=== PATIENT | female | born 1930 | race Caucasian/White ===

== ENCOUNTER 2018-01-07 14:53 | Inpatient (IN) | payer BC ==
[2018-01-07] VITALS (12 sets, daily range): BP systolic 79–138; BP diastolic 39–82
[~2018-01-07] VITALS: Ht 152.4 cm; Wt 43.1 kg
--- NOTE | 2018-01-07 14:53 | NUR ---
[id number] FROM [facility] FOR AMS AND SOB STARTED 30 MIN AGO. PLACED ON MONITOR. AWAITING MD ORDER
--- NOTE | 2018-01-07 15:06 | NUR ---
EKG IN PROGRESS
--- NOTE | 2018-01-07 15:06 | NUR ---
TRISTAN #20 IV ACCESS. BLOOD SAMPLE COLLECTED SENT TO LAB
[2018-01-07 15:29] LABS: BASOPHILS % (AUTO) 0.4 % (0.0-2.0); CARBON DIOXIDE 32 mmol/L (21-32); CHLORIDE 111 mmol/L (98-107); CREATININE 2.1 mg/dL (0.6-1.3); GLUCOSE 123 mg/dL (74-106); HEMATOCRIT 30 % (33-45); HEMOGLOBIN 9.6 g/dL (11.5-14.8); LYMPHOCYTES # (AUTO) 0.6 /CMM (0.8-4.8); LYMPHOCYTES % (AUTO) 5.9 % (20.0-44.0); MEAN CORPUSCULAR HEMOGLOBIN 27 PG (26.0-33.0); MEAN CORPUSCULAR HGB CONC 32 g/dl (31.0-36.0); MEAN CORPUSCULAR VOLUME 85 fL (82-100); MONOCYTES # (AUTO) 1.1 /CMM (0.1-1.30); MONOCYTES % (AUTO) 10.3 % (2.0-12.0); NEUTROPHILS # (AUTO) 8.8 /CMM (1.8-8.9); NEUTROPHILS % (AUTO) 83.4 % (43.0-81.0); PLATELET COUNT (AUTO) 218 /CMM (150-450); POTASSIUM 4.4 mmol/L (3.5-5.1); SODIUM SERUM 150 mmol/L (136-145); UREA NITROGEN, BLOOD 55 mg/dL (7-18); WHITE BLOOD COUNT (AUTO) 10.5 K/uL (4.3-11.0)
[2018-01-07 15:30] LABS: ABG BASE EXCESS -0.1 mmol/L; ABG OXYGEN SATURATION 99.4 % (92.0-98.5); ABG PCO2 42.1 mmHg (35.0-45.0); ABG PO2 330.5 mmHg (75.0-100.0); AaDO2 340.4 mmHg; COHb 1.2 % (0.5-1.5); MetHb 0.5 % (0.0-1.5); O2Hb 97.7 % (94.0-97.0); SITE, ABG Right Radial; VENT MODE, BG NRB
[2018-01-07 15:33] LABS: INR 2.64 (0.85-1.15)
--- NOTE | 2018-01-07 15:41 | NUR ---
VERBAL ORDER DR ZAMORANO DE LA CRUZ CATH INSERTION URINE SAMPLE COLLECTED SENT TO LAB
--- NOTE | 2018-01-07 15:41 | NUR ---
SUPERVISOR FITTING AT BEDSIDE
[2018-01-07 15:42] LABS: ALANINE AMINOTRANSFERASE 41 U/L (12-78); ALBUMIN 2.5 g/dL (3.4-5.0); ALKALINE PHOSPHATASE 90 U/L (46-116); ASPARTATE AMINOTRANSFERASE 49 U/L (15-37); B-TYPE NATRIURETIC PEPTIDE 18629 PG/ML (0-125); BILIRUBIN,DIRECT 5.8 mg/dL (0.0-0.2); BILIRUBIN,TOTAL 7.4 mg/dL (0.2-1.0); TOTAL PROTEIN, SERUM 6.4 g/dL (6.4-8.2)
[2018-01-07 15:44] LABS: SERUM AMMONIA 27 umol/L (11-32)
[2018-01-07 15:57] LABS: APPEARANCE,URINE Clear (CLEAR); BILIRUBIN,URINE MODERATE (NEGATIVE); BLOOD, URINE Trace-intact Ery/uL (NEGATIVE); COLOR,URINE Yellow (YELLOW); KETONES,URINE Negative (NEGATIVE); LEUKOCYTE ESTERASE ,URINE Negative (NEGATIVE); NITRITE, URINE Negative (NEGATIVE); PROTEIN,URINE 100 mg/dl (NEGATIVE); UGLUCOSE Negative (NEGATIVE)
[2018-01-07] MEDS ORDERED: IV NS 0.9% 1,000 ML IV ONE (16:00)
[2018-01-07 16:15] LABS: THYROID STIMULATING HORMONE 1.831 uIU/mL (0.358-3.74)
--- NOTE | 2018-01-07 16:26 | NUR ---
CALLED [facility] FOR DISCHARGE SUMMARY, LABS AND IMAGE REPORTS
[2018-01-07 16:34] LABS: TROPONIN I 0.184 ng/mL (0.00-0.056)
[2018-01-07 16:45] LABS: WBC,URINE 0-2 /HPF (0-3)
--- NOTE | 2018-01-07 16:45 | NUR ---
VERBAL ORDER ETOMIDATE 30 MG AND SUCC 120 MG VIA IV
[2018-01-07 16:46] LABS: BACTERIA,URINE Few /HPF (None Seen); HYALINE CASTS, URINE Moderate /LPF (None Seen); SQUAMOUS EPITHELIAL CELL,UR Moderate /HPF (None Seen); URINE AMORPHOUS URATE Many /HPF (None Seen)
--- NOTE | 2018-01-07 16:53 | NUR ---
PICC LINE NURSE CALLED, ETA W/IN 2 HRS, DR ZAMORANO AWARE
[2018-01-07 17:02] LABS: BAND % (MANUAL) 2 % (0.0-5.0); LYMPHOCYTES % (MANUAL) 6 % (16-48); MONOCYTES % (MANUAL) 8 % (0-11.0); NEUTROPHILS % (MANUAL) 84 (42-76)
--- NOTE | 2018-01-07 17:06 | NUR ---
RT NOTE INTUBATED PT WITH AN 7.5 ETT,21CM @ THE LIP, POSITIVE CO2 DETECTOR COLOR CHANGE, BILATERAL RHONCHI BREATH SOUND NOTED, WITH FOLLOWING VENT SETTINGS, AC 14, 400, +5 100%. AMBUBAG AT BED SIDE, VENT PLUGGED INTO RED OUTLET. PT IN NO APPARENT DISTRESS. WILL MONITOR CLOSELY
--- NOTE | 2018-01-07 17:16 | NUR ---
TYPEWRITERS FUNCTIONAL TESTER AT BEDSIDE
[2018-01-07] MEDS ORDERED: ALBUTEROL FS 2.5 MG/3 ML VIAL.NEB ONE (17:21)
[2018-01-07] MEDS ORDERED: MAGN400O6 PO (17:28)
[2018-01-07] MEDS ORDERED: BISA10SU8 RC (17:28)
[2018-01-07] MEDS ORDERED: LEVO88TA5 PO (17:28)
[2018-01-07] MEDS ORDERED: FOLI0.8T2 PO (17:28)
[2018-01-07] MEDS ORDERED: ALPR0.5T8 PO (17:28)
[2018-01-07] MEDS ORDERED: SPIR25TA PO (17:28)
[2018-01-07] MEDS ORDERED: APIX2.5T PO (17:28)
[2018-01-07] MEDS ORDERED: NA P133E RC (17:28)
--- NOTE | 2018-01-07 18:20 | NUR ---
PICC LINE NURSE AT BEDSIDE
[2018-01-07] MEDS ORDERED: SUCCINYLCHOLINE CHLORIDE 20 MG/ML VIAL IV ONE (18:30)
[2018-01-07] MEDS ORDERED: ALBUTEROL SULFATE 8 GM HFA.AER.AD IH ONE (18:30)
[2018-01-07] MEDS ORDERED: ETOMIDATE 2 MG/ML VIAL IV ONE (18:30)
--- NOTE | 2018-01-07 18:52 | NUR ---
GIVEN REPORT TO APARNA CHAPLAIN RESIDENT ROOM 251 DX ACUTE RESPIRATORY FAILURE METABOLIC ENCEPHALOPATHY . DR VARGAS ADMITTING
[2018-01-07] MEDS ORDERED: VANCOMYCIN 1 GM in IV D5W 250 ML IV ONE (19:00)
[2018-01-07] MEDS ORDERED: PIPERACILLIN /TAZOBACTAM 3.375 G in IV D5W 50 ML IV ONE (19:00)
[2018-01-07] MEDS ORDERED: PROPOFOL 100 ML ONE (19:08)
--- NOTE | 2018-01-07 19:10 | NUR ---
REPORT RECIEVED FROM BORIS ROE FOR TANA.
--- NOTE | 2018-01-07 19:15 | NUR ---
RT AT BEDSIDE TO ADJUSTED ET TUBE. 23CM AT THE LIP NOW.
--- NOTE | 2018-01-07 19:20 | NUR ---
PROPOFOL DRIP STOPPED DUE TO PT B/P 65/33. MADE AWARE. NEW ORDERS RECEIVED.
[2018-01-07 19:25] LABS: ABG OXYGEN SATURATION 99.3 % (92.0-98.5); ABG PCO2 46.2 mmHg (35.0-45.0); ABG PH 7.362 (7.350-7.450); AaDO2 349.8 mmHg; COHb 0.9 % (0.5-1.5); MetHb 0.6 % (0.0-1.5); O2Hb 97.8 % (94.0-97.0); SITE, ABG Left Radial; VENT MODE, BG AC 14 400 100% +5
[2018-01-07] MEDS ORDERED: PROPOFOL 100 ML IV PRN (19:30)
--- NOTE | 2018-01-07 19:30 | NUR ---
PT TO CT VIA STRETCHER ON SLICER MACHINE OPERATOR WITH RN AND RT PER ACLS PROTOCOL, VSS.
--- NOTE | 2018-01-07 19:34 | NUR ---
GAVE REPORT TO MARSHALL FOR TANA
--- NOTE | 2018-01-07 19:59 | NUR ---
ETT INSERTED TO [address] ZAMORANO Addendum: 01/07/18 at 1999 by ELMO BONNER RT Amended: Links added. Addendum: 01/07/18 at 2002 by ELMO BONNER RT DONE @ 1900
--- NOTE | 2018-01-07 20:01 | NUR ---
BACK FROM CT.
--- NOTE | 2018-01-07 20:01 | NUR ---
FIO2 DECREASED TO 60% PER DR ZAMORANO Addendum: 01/07/18 at 2000 by ELMO BONNER RT Amended: Links added.
--- NOTE | 2018-01-07 20:14 | NUR ---
PT B/P 139/54. PROPRFOL IV TO R ARM PICC STARTED AT 4MCG/MIN.
[2018-01-07] MEDS ORDERED: IV NS 0.9% 500 ML BAG IV ONE (20:30)
--- NOTE | 2018-01-07 21:20 | NUR ---
RECEIVED ORDRES FROM SHOW TO ADMIT TO ICU FOR RESP. FAILURE. ALICIA TO COME IN TO SEE PT AND GIVE FURTHER ORDERS.
--- NOTE | 2018-01-07 21:30 | NUR ---
PT TRANSPORTED TO ICU 251 VIA STRETCHER ON CHEMISTRY TECHNOLOGIST WITH RN AND RT PER ACLS PROTOCOL. VSS.
[2018-01-07] MEDS ORDERED: FUROSEMIDE 40 MG/4 ML VIAL IV ONE ×2 (22:00→22:30)
[2018-01-07] MEDS ORDERED: IPRATROPIUM NEB FS 0.5 MG/2.5 ML AMPUL.NEB NEB PRN (22:30)
[2018-01-07] MEDS ORDERED: NOREPINEPHRINE 8 MG in IV D5W 500 ML IV PRN (22:30)
[2018-01-07] MEDS: LEVOTHYROXINE INJ 100 MCG VIAL IV SCH (22:30)
[2018-01-07] MEDS ORDERED: ALBUTEROL FS 2.5 MG/0.5 ML VIAL.NEB NEB PRN (22:30)
[2018-01-07] MEDS ORDERED: IV D5W 1,000 ML IV PRN (22:30)
[2018-01-07] MEDS: PROPOFOL 100 ML IV PRN (22:37)
[2018-01-07] MEDS: PANTOPRAZOLE 40 MG VIAL IV SCH (22:38)
--- NOTE | 2018-01-07 23:28 | NUR ---
pt received on vent via charted route and settings. ambu bag at bedside alarms set and audible. disconnect alarms checked. vent plugged into red outlet. tolerating vent settings at ths time. will continue to monitor Addendum: 01/07/18 at 2329 by FANY CONRAD RT Amended: Links added.
[2018-01-07] MEDS ORDERED: NOREPINEPHRINE 4 MG/4 ML AMPUL IV ONE (23:57)
[2018-01-08] VITALS (97 sets, daily range): BP systolic 80–123; BP diastolic 28–77
[2018-01-08] MEDS: NOREPINEPHRINE 8 MG in IV D5W 500 ML IV PRN ×2 (03:15→12:35)
[2018-01-08] MEDS ORDERED: PIPERACILLIN /TAZOBACTAM 2.25 G VIAL IV ONE (04:52)
[2018-01-08] MEDS: PROPOFOL 100 ML IV PRN ×3 (05:00→20:48)
[2018-01-08] MEDS: PIPERACILLIN /TAZOBACTAM 2.25 G in IV D5W 50 ML IV SCH ×3 (05:01→20:46)
[2018-01-08 05:29] LABS: HEMATOCRIT 25 % (33-45); HEMOGLOBIN 7.7 g/dL (11.5-14.8); LYMPHOCYTES # (AUTO) 0.4 /CMM (0.8-4.8); LYMPHOCYTES % (AUTO) 2.5 % (20.0-44.0); MEAN CORPUSCULAR HEMOGLOBIN 27 PG (26.0-33.0); MEAN CORPUSCULAR HGB CONC 31 g/dl (31.0-36.0); MEAN CORPUSCULAR VOLUME 87 fL (82-100); MONOCYTES # (AUTO) 0.7 /CMM (0.1-1.30); MONOCYTES % (AUTO) 5.2 % (2.0-12.0); NEUTROPHILS # (AUTO) 13.2 /CMM (1.8-8.9); NEUTROPHILS % (AUTO) 92.3 % (43.0-81.0); PLATELET COUNT (AUTO) 188 /CMM (150-450); RDW COEFFICIENT OF VARIATION 36.9 (11.5-15.0); RED BLOOD CELL COUNT(AUTO) 2.87 MIL/uL (4.0-5.2); WHITE BLOOD COUNT (AUTO) 14.3 K/uL (4.3-11.0)
[2018-01-08 05:41] LABS: INR 2.1 (0.87-1.13)
--- NOTE | 2018-01-08 06:00 | NUR ---
STREET LIGHT CLEANER CHEST TUBE OUTPUT RIGHT SIDE CHEST TUBE HAD NO OUTPUT; LEAKING BLOOD AT SITE DR VARGAS AWARE WITH ORDERS TO REPEAT CXR. PLACED CALL TO DR VARGAS WITH RESULTS NO ANSWER FROM MD. RIGHT SIDE CHEST TUBE HAD 65 ML OF BLOOD UPON ADMISSION. NO FURTHER OUTPUT NOTED.
[2018-01-08 06:20] LABS: BAND % (MANUAL) 1 % (0.0-5.0); LYMPHOCYTES % (MANUAL) 4 % (16-48); MONOCYTES % (MANUAL) 2 % (0-11.0); NEUTROPHILS % (MANUAL) 93 (42-76)
--- NOTE | 2018-01-08 07:32 | NUR ---
BOX OFFICE MANAGER PER FAMILY REQUEST ONLY THE FOLLOWING MAY VISIT: JENNIFER SARMIENTO AND MICAH.
--- NOTE | 2018-01-08 07:35 | NUR ---
RT PER MD ORDER PEEP TURNED OFF Addendum: 01/08/18 at 0736 by RENA WATTERS RT Amended: Links added.
[2018-01-08 07:59] LABS: ALANINE AMINOTRANSFERASE 33 U/L (12-78); ALBUMIN 1.9 g/dL (3.4-5.0); ALKALINE PHOSPHATASE 65 U/L (46-116); ASPARTATE AMINOTRANSFERASE 40 U/L (15-37); BILIRUBIN,TOTAL 6.3 mg/dL (0.2-1.0); CALCIUM, SERUM 7.7 mg/dL (8.5-10.1); CARBON DIOXIDE 30 mmol/L (21-32); CHLORIDE 111 mmol/L (98-107); CREATININE 1.9 mg/dL (0.6-1.3); GLUCOSE 174 mg/dL (74-106); POTASSIUM 3.7 mmol/L (3.5-5.1); SODIUM SERUM 148 mmol/L (136-145); UREA NITROGEN, BLOOD 56 mg/dL (7-18)
--- NOTE | 2018-01-08 08:00 | NUR ---
ICU/RN PT IS INTUBATED ON THE VENT AC MODE,FIO2-60%,SAT O2-100%.SEDATED ON DIPRIVAN.AFEBRILE.ON LEVOPHED .RESPONSIVE ON PAIN STIMULATION.RIGHT UPPER ARM PICC LINE.IV INFUSING ORDERED.NPO.PER FAMILY REQUEST NO FEEDING TUBES.F/C DRAINING WITH YELLOW URINE.PT HAS BILATERAL CHEST TUBES CONNECTED TO SUCTIONS.LEFT SIDE CHEST TUBE HAS SOME BLOODY OUTPUT.BILATERAL WRIST SOFT RESTRAINS ON.PT HAS MULTIPLY BRUISES ALL OVER THE BODY AND SKIN TEARS ON RIGHT ARM.REDNESS ON STEF AREA NOTED,DTI ON SACRUM.BLOODY SECRETION NOTED AROUND CHEST TUBE INSERTIONS.SUCTION PROVIDED.PT HAS BLOODY SECRETION .REPOSITION FOR COMFORT.
[2018-01-08] MEDS ORDERED: FEE EMEERGENCY 1 MIN EA MC ONE (08:12)
[2018-01-08] MEDS ORDERED: SUCCINYLCHOLINE CHLORIDE 20 MG/ML VIAL IV ONE (08:12)
[2018-01-08] MEDS ORDERED: ETOMIDATE 2 MG/ML VIAL IV ONE (08:12)
[2018-01-08] MEDS: LEVOTHYROXINE INJ 100 MCG VIAL IV SCH (08:37)
[2018-01-08 08:38] LABS: ABG BASE EXCESS 6.5 mmol/L; ABG OXYGEN SATURATION 98.4 % (92.0-98.5); ABG PCO2 46.1 mmHg (35.0-45.0); ABG PH 7.449 (7.350-7.450); ABG PO2 149.7 mmHg (75.0-100.0); AaDO2 154.9 mmHg; COHb 0.8 % (0.5-1.5); MetHb 0.7 % (0.0-1.5); O2Hb 96.9 % (94.0-97.0); SITE, ABG Left Radial
[2018-01-08] MEDS ORDERED: FUROSEMIDE 40 MG/4 ML VIAL IV SCH ×2 (09:00)
[2018-01-08] MEDS: IV NS 0.9% 1,000 ML IV SCH ×2 (09:17→13:55)
--- NOTE | 2018-01-08 09:18 | NUR ---
WOUND CARE CONSULT: PT PRESENTS WITH SACRAL DEEP TISSUE INJURY WHICH IS INTACT, PRESENT ON ADMISSION. PT ALSO NOTED TO HAVE WEEPING EDEMA TO ARMS AND SKIN TEAR WITH BRUISING TO RT ARM, PRESENT ON ADMISSION. PT IS INTUBATED WITH CURRENT REBECCA SCORE OF 12. PT ON FIRST STEP MATTRESS. ALL SKIN PROTECTION AND WOUND RECOMMENDATIONS DISCUSSED WITH NURSING STAFF. WILL SEE PRN. MCGOWAN IN AGREEMENT WITH PLAN OF CARE. Addendum: 01/08/18 at 0920 by BRENT CONTEH WNDNU Amended: Links added.
[2018-01-08 09:29] LABS: THYROID STIMULATING HORMONE 0.605 uIU/mL (0.358-3.74)
[2018-01-08] MEDS ORDERED: Z GUARD REMEDY 2 OZ OINT TP PRN (09:30)
--- NOTE | 2018-01-08 09:45 | NUR ---
ICU/RN DUE MEDS ARE GIVEN ORDERED.SEDATION VACATION PROVIDED.PT IS OPEN EYES,FOLLOW COMMANDS,AGITATED.HR INCREASED,RR INCREASED.DIPRIVAN INCREASED.CONTINUE MONITORING.
[2018-01-08 09:47] LABS: MAGNESIUM 2.2 mg/dL (1.8-2.4); PHOSPHORUS 4.4 mg/dL (2.5-4.9)
[2018-01-08 09:48] LABS: TROPONIN I 0.129 ng/mL (0.00-0.056)
[2018-01-08] MEDS: Z GUARD REMEDY 2 OZ OINT TP SCH (12:36)
--- NOTE | 2018-01-08 19:15 | NUR ---
ICU/RN RECEIVED PT ON VENT,SEDATED W/ DIPRIVAN [id number]/KG/MIN.OPENS EYES WHEN NAME CALLED AND DIPRIVAN DECREASED TO 25MCG/KG/MIN.BILATERAL CT IN PLACE ONE ON LEFT AND ONE ON RT SIDE,DRAINING [id number] DRAINAGE.BILATERAL ARMS WEEPING OF SEROUS FLUID.
--- NOTE | 2018-01-08 22:10 | NUR ---
pt received on vent via charted route and settings. ambu bag at bedside alarms set and audible. disconnect alarms checked. vent plugged into red outlet. tolerating vent settings at ths time. will continue to monitor Addendum: 01/08/18 at 2210 by FANY CONRAD RT Amended: Links added.
[2018-01-09] VITALS (56 sets, daily range): BP systolic 88–138; BP diastolic 38–85
[2018-01-09] MEDS: PANTOPRAZOLE 40 MG VIAL IV SCH ×2 (01:27→22:20)
[2018-01-09 05:04] LABS: BASOPHILS % (AUTO) 0.1 % (0.0-2.0); EOSINOPHILS % (AUTO) 0.2 % (0.0-6.0); HEMATOCRIT 26 % (33-45); HEMOGLOBIN 7.9 g/dL (11.5-14.8); LYMPHOCYTES # (AUTO) 0.5 /CMM (0.8-4.8); LYMPHOCYTES % (AUTO) 4.1 % (20.0-44.0); MEAN CORPUSCULAR HEMOGLOBIN 27 PG (26.0-33.0); MEAN CORPUSCULAR HGB CONC 31 g/dl (31.0-36.0); MEAN CORPUSCULAR VOLUME 87 fL (82-100); MONOCYTES # (AUTO) 0.3 /CMM (0.1-1.30); MONOCYTES % (AUTO) 2.5 % (2.0-12.0); NEUTROPHILS # (AUTO) 11.3 /CMM (1.8-8.9); NEUTROPHILS % (AUTO) 93.1 % (43.0-81.0); PLATELET COUNT (AUTO) 178 /CMM (150-450); RDW COEFFICIENT OF VARIATION 38.3 (11.5-15.0); RED BLOOD CELL COUNT(AUTO) 2.95 MIL/uL (4.0-5.2); WHITE BLOOD COUNT (AUTO) 12.1 K/uL (4.3-11.0)
[2018-01-09] MEDS: PIPERACILLIN /TAZOBACTAM 2.25 G in IV D5W 50 ML IV SCH ×3 (05:05→21:12)
[2018-01-09 05:16] LABS: INR 1.38 (0.87-1.13)
[2018-01-09 05:18] LABS: TROPONIN I 0.109 ng/mL (0.00-0.056)
[2018-01-09 05:22] LABS: ALANINE AMINOTRANSFERASE 38 U/L (12-78); ALBUMIN 1.7 g/dL (3.4-5.0); ALKALINE PHOSPHATASE 63 U/L (46-116); ASPARTATE AMINOTRANSFERASE 44 U/L (15-37); CALCIUM, SERUM 7.4 mg/dL (8.5-10.1); CARBON DIOXIDE 30 mmol/L (21-32); CHLORIDE 111 mmol/L (98-107); CREATININE 1.5 mg/dL (0.6-1.3); GLUCOSE 65 mg/dL (74-106); MAGNESIUM 1.9 mg/dL (1.8-2.4); PHOSPHORUS 3.2 mg/dL (2.5-4.9); POTASSIUM 3.2 mmol/L (3.5-5.1); SODIUM SERUM 150 mmol/L (136-145); TOTAL PROTEIN, SERUM 4.8 g/dL (6.4-8.2); UREA NITROGEN, BLOOD 45 mg/dL (7-18)
--- NOTE | 2018-01-09 06:00 | NUR ---
ICU/RN REMAINS ON DIPRIVAN DRIP AT 30MCG/KG/MIN.VITAL SIGNS STABLE.NO MEASURABLE CT DRAINAGE,CT DRESSING INTACT AND DRY.NO AIR LEAK NOTED.
[2018-01-09] MEDS: PROPOFOL 100 ML IV PRN ×3 (06:16→21:25)
--- NOTE | 2018-01-09 07:30 | NUR ---
INITIAL PT ON BED VENTILATED RATE 14 CONTROL MODE VT-400 PEEP 0, FIO2 50% ALERT WHEN AROUSED ON PROPOFOL DRIP AT 30 MCG'S RUNNING THROUGH MIKE PICC PT ALSO HAS 20 G EJ TKO. ALL SITES CLEAN DRY AND INTACTPT HAS BOTH ARM WITH EDEMA AND REDNESS LEFT ARM WRAPPED WITH GAUGE SEEPING SEROSANGUINEOUS FLUID. PT SKIM AND EYES JAUNDICE. PT HAS TWO CHEST TUBES RIGHT NO DRAINAGE AND LEFT SCANT DRAINAGE BOTH CONNECTED TO SUCTION AT (-)100. PT V-PACED 70 RATE ON FORENSIC MANAGER. BED ALARM ON AND IN LOW POSITION. CALL LIGHT NEXT TO PT.
[2018-01-09] MEDS ORDERED: IV NS 0.9% 1,000 ML IV PRN (07:40)
[2018-01-09 08:51] LABS: ABG BASE EXCESS 6.6 mmol/L; ABG OXYGEN SATURATION 97.4 % (92.0-98.5); ABG PCO2 42.6 mmHg (35.0-45.0); ABG PH 7.477 (7.350-7.450); ABG PO2 113.1 mmHg (75.0-100.0); AaDO2 123.1 mmHg; MetHb 0.6 % (0.0-1.5); O2Hb 95.8 % (94.0-97.0); PEEP,BG 0 cm H2O; SITE, ABG Left Radial; VT, ABG 400 mL
[2018-01-09] MEDS: POTASSIUM CL. PREMIX PERIPHER. 50 ML IV SCH ×4 (09:03→11:32)
--- NOTE | 2018-01-09 09:11 | NUR ---
PT REC'D ORALLY INTUBATED VIA 7.0 ETT AT 23CM AT THE LIP. PT VENT SETTINGS PER DR. KATE REQUEST. VENT ALARMS SET AND AUDIBLE PER POLICY. VENT PLUGGED INTO RED OUTLET. ABG DONE AND RESULTS SHOWN TO DR. KATE. NO CHANGES MADE. WILL CONTINUE TO MONITOR PT. AMBU BAG AT HOB. Addendum: 01/09/18 at 0913 by DENYS WEAVER RT Amended: Links added.
[2018-01-09] MEDS ORDERED: Potassium Chloride 20 MEQ in IV D5W 1,000 ML IV PRN (10:00)
[2018-01-09] MEDS: Z GUARD REMEDY 2 OZ OINT TP SCH (10:01)
[2018-01-09] MEDS: FUROSEMIDE 20 MG/2 ML VIAL IV SCH ×2 (10:31→16:02)
--- NOTE | 2018-01-09 15:30 | NUR ---
THELMA received a call from pt's [id number] Danny Plata requesting a letter from Dr. Greene stating that pt. is in critical condition in ICU. THELMA contacted Dr. Greene who informed THELMA to leave the letter in pt's chart and he will sign it tomorrow morning. THELMA wrote letter and gave it to ICU CRN William to place in pt's chart for Dr. Greene to sign. THELMA contacted Danny and informed her that Dr. Greene will sign the letter tomorrow morning. Danny requested for THELMA to fax the signed letter to pt's coder Perla Stout . SW to follow up tomorrow morning. Addendum: 01/09/18 at 1548 by JORGE RENEE THELMA received a call from pt's [id number] Danny stating that the family is requesting for pt's daughter Ashley Plata to be the only visitor allowed to see the pt. and not pt's friends at this time. THELMA informed pt's BORIS Goodwin regarding family's request.
--- NOTE | 2018-01-09 19:07 | NUR ---
ENDING PT GIVEN ONE UNIT OF BLOOD REMAINS ON PROPOFOL GIVEN REST PERIOD AND MD BOYER WANTS TO REMAIN ON FOR COMFORT. PT ON VENTILATOR NO WEANING. V-PACE CONTINUES. STARTED ON FLUIDS.
--- NOTE | 2018-01-09 19:18 | NUR ---
ICU/RN RECEIVED PT ON VENT,ON DIPRIVAN DRIP AT 30MCG/KG/MIN.ATTEMPTS TO OPEN EYES WHEN NAME CALLED,GRIMACES.BILATERAL C.T.IN PLACE,NO AIR LEAK NOTED.NO DRAINAGE ON RT.CT.SCANT SEROSANGUINEOUS DRAINAGE ON LT.
[2018-01-10] VITALS (39 sets, daily range): BP systolic 71–150; BP diastolic 14–99
[2018-01-10] MEDS: PIPERACILLIN /TAZOBACTAM 2.25 G in IV D5W 50 ML IV SCH ×3 (04:35→20:23)
[2018-01-10] MEDS: PROPOFOL 100 ML IV PRN (04:36)
[2018-01-10 05:36] LABS: BASOPHILS % (AUTO) 0.2 % (0.0-2.0); EOSINOPHILS % (AUTO) 0.4 % (0.0-6.0); HEMATOCRIT 29 % (33-45); HEMOGLOBIN 9.2 g/dL (11.5-14.8); LYMPHOCYTES # (AUTO) 0.5 /CMM (0.8-4.8); LYMPHOCYTES % (AUTO) 4.5 % (20.0-44.0); MEAN CORPUSCULAR HEMOGLOBIN 28 PG (26.0-33.0); MEAN CORPUSCULAR HGB CONC 32 g/dl (31.0-36.0); MEAN CORPUSCULAR VOLUME 87 fL (82-100); MONOCYTES # (AUTO) 0.3 /CMM (0.1-1.30); MONOCYTES % (AUTO) 2.7 % (2.0-12.0); NEUTROPHILS # (AUTO) 9.4 /CMM (1.8-8.9); NEUTROPHILS % (AUTO) 92.2 % (43.0-81.0); PLATELET COUNT (AUTO) 143 /CMM (150-450); RDW COEFFICIENT OF VARIATION 35.2 (11.5-15.0); RED BLOOD CELL COUNT(AUTO) 3.34 MIL/uL (4.0-5.2); WHITE BLOOD COUNT (AUTO) 10.2 K/uL (4.3-11.0)
[2018-01-10 05:49] LABS: ALANINE AMINOTRANSFERASE 23 U/L (12-78); ALKALINE PHOSPHATASE 61 U/L (46-116); ASPARTATE AMINOTRANSFERASE 36 U/L (15-37); BILIRUBIN,TOTAL 4.2 mg/dL (0.2-1.0); CALCIUM, SERUM 7.6 mg/dL (8.5-10.1); CARBON DIOXIDE 31 mmol/L (21-32); CHLORIDE 109 mmol/L (98-107); CREATININE 1.3 mg/dL (0.6-1.3); GLUCOSE 87 mg/dL (74-106); MAGNESIUM 1.7 mg/dL (1.8-2.4); PHOSPHORUS 2.8 mg/dL (2.5-4.9); POTASSIUM 3.1 mmol/L (3.5-5.1); SODIUM SERUM 148 mmol/L (136-145); TOTAL PROTEIN, SERUM 4.5 g/dL (6.4-8.2); UREA NITROGEN, BLOOD 38 mg/dL (7-18)
[2018-01-10 06:11] LABS: ALBUMIN 1.4 g/dL (3.4-5.0)
[2018-01-10] MEDS ORDERED: POTASSIUM CL. PREMIX PERIPHER. 50 ML IV SCH (06:15)
--- NOTE | 2018-01-10 06:30 | NUR ---
ICU/RN CONDITION UNCHANGED.NO MEASURABLE CT DRAINAGE.NO AIR LEAK.MONITOR SHOWS 100 V-PACED.
--- NOTE | 2018-01-10 07:07 | NUR ---
Intubated pt received on mechanical vent. Pt 7.0 ETT secured at 23cm @ the lip. Vent is plugged into a red outlet, alarms are set and audible, and BVM is at bedside. Addendum: 01/10/18 at 0709 by LUCY MAZA RT Amended: Links added.
[2018-01-10 07:20] LABS: BAND % (MANUAL) 4 % (0.0-5.0); LYMPHOCYTES % (MANUAL) 1 % (16-48); MONOCYTES % (MANUAL) 3 % (0-11.0); NEUTROPHILS % (MANUAL) 92 (42-76)
--- NOTE | 2018-01-10 08:00 | NUR ---
MOUNTER BRASS WIND INSTRUMENTS: pt.is sedated with 30 mcg/kg/m Diprivan gtt, rest now, no arms activity, grimacing with pain stimuli, O2 sat. over 96%, Vpacing, SBP over 90, I/O negative last days, evaluated orders: Mg 2gm IV, K+ 40meq IV (waiting from pharmacy) by , NPO, arms skin oozing, T 98.6, B.chest tubes: neg.pressure WNL, connections+, no drain over night by report, no air leak, CXR: no pntx
[2018-01-10] MEDS: Magnesium 1GM/D5W 100ML PREMIX 100 ML IV SCH ×2 (08:22→09:18)
--- NOTE | 2018-01-10 08:40 | NUR ---
OUTSIDE PROPERTY AGENT: is in room, updated with pt.current condition, VS, IVF, I/O, orders, ABG, B.CTs, Albumin 1.4, sedation level, NPO, said: stop sedation now to see reaction/evaluate for extubation today, d/c IVF
[2018-01-10 08:43] LABS: ABG BASE EXCESS 7.7 mmol/L; ABG OXYGEN SATURATION 97.7 % (92.0-98.5); ABG PCO2 46.2 mmHg (35.0-45.0); ABG PH 7.463 (7.350-7.450); ABG PO2 126.8 mmHg (75.0-100.0); AaDO2 105.3 mmHg; COHb 0.3 % (0.5-1.5); MetHb 0.6 % (0.0-1.5); O2Hb 96.8 % (94.0-97.0); PEEP,BG 0 cm H2O; SITE, ABG Left Brachial; VENT MODE, BG ac 14 400 40%
--- NOTE | 2018-01-10 08:50 | NUR ---
AUDIO TECHNICIAN: sedation is off, pt.is unable to open eyes, weak head activity, spoke with
--- NOTE | 2018-01-10 09:15 | NUR ---
BIZTALK ARCHITECT: pt.is off of sedation, unable to open eyes, head activity+, trace arms activity+, RR WNL, O2 sat. over 96%, is in room, updated with all above, CTs status, said: continue monitoring, ordered: Ativan 0.5 mg q2h IV PRN for agitating, RT updated
[2018-01-10] MEDS: FUROSEMIDE 20 MG/2 ML VIAL IV SCH ×2 (09:34→16:28)
[2018-01-10] MEDS: Z GUARD REMEDY 2 OZ OINT TP SCH (09:37)
[2018-01-10] MEDS: POTASSIUM CL. PREMIX PERIPHER. 50 ML IV SCH ×4 (09:47→13:35)
--- NOTE | 2018-01-10 10:00 | NUR ---
GAS USAGE METER CLERK: sedation is off, pt.is rest now, more active, but no reaction contact, unable to open eyes, head activity+, weak arms/legs activity, RR 14-18, O2sat. 100%, V pacing 70-72, SBP over 90, reassessed pt.
--- NOTE | 2018-01-10 13:51 | NUR ---
MEDICAL APPOINTMENT CLERK: same neuro status, pt.is with closed eyes, rest, slightly grimacing/head activity, trace arms activity, no any conscious reactions, SR, SBP over 100, no SOB, O2 sat. WNL, was suctioned by RT
--- NOTE | 2018-01-10 15:32 | NUR ---
MANAGER VALUATION: pt.family(Raya) called, notified re pt.VS, current neuro status without sedation, orders, MDs visits, POC, confirmed: ok to place in NGT as needed. Will endorse next shift notify to sign SW letter in the chart
--- NOTE | 2018-01-10 16:10 | NUR ---
INSURANCE DEFENSE ATTORNEY: pt.is restless head activity, able to bite ETT occas., can open eyes for seconds, trace arms activity, no any alert/tracking reaction, still very weak, Vpacing 70, SBP over 90, CTs: patent, no air leak, no drain out, secured connections, dressing are intact
[2018-01-10] MEDS: LORAZEPAM INJ 2 MG/ML VIAL IV PRN ×2 (16:22→20:21)
[2018-01-10] MEDS: IV NS 0.9% 250 ML IV PRN (18:33)
--- NOTE | 2018-01-10 18:44 | NUR ---
RESPIRATORY TECHNICIAN: pt.is rest, no SOB, head activity+ occas., can open eyes for seconds, very weak arms activity occas., no any alert tracking reactions, O2 sat. over 96%, SR, SBP over 100, PM/skin/wound care done, endorsed/applied more tape over L.CT d/t bloody oozing from dressing, lungs sounds are same, pt.was suctioned well, 2CT sets are patent, no drain out, no air leak during last 12 hrs, same mental status since sedation turned off, arms continue elevated to relieve edema
--- NOTE | 2018-01-10 19:50 | NUR ---
RN NOTES PT RESTING ON BED. NO ACUTE RESP DISTRESS. EYES OPEN MOVE HEAD BUT UNABLE TO FOLLOW COMMAND. WITH ETT 7.5/23CM @ LIP CONNECTED TO VENT SETTING AC 14 TV 400 FIO2 40% NO PEEP. V PACING ON TELE MONITOR HR 70'S. BILATERAL CHEST TUBE INTACT WITH ZERO DRAINAGE ON RIGHT SIDE AND SEROSANGUINEOUS ON LEFT SIDE. INTACT NO LEAKING NO AIR HEARD. IV SITE ON LIJ HL AND RIGHT UPPER ARM PICC LINE INTACT AND PATENT.. BILATERAL UPPER EXT/ WITH OOZING SKIN KEPT BUE AND BLE OFFLOADED WITH PILLOWS. TURNED AND REPOSITIONED PT COMFORTABLE. KEPT PT CLEAN AND DRY. WILL CONTINUE TO MONITOR.
--- NOTE | 2018-01-10 20:33 | NUR ---
RN NOTES VISITED BY DAUGHTER TORSTEN UPDATED REGARDING THE PT STATUS. AFTER HOUR WORLD GEOGRAPHY TEACHER MS. GREEN CAME 5 MINS. AFTER THE DAUGHTER AND INFORMED US REGARDING THE CASE INVT. # [id number] [facility] [place] [facility]PS BY WORLD GEOGRAPHY TEACHER SAIRA SAL. CHARGE NURSE MADE AWARE ABOUT THE INVESTIGATION AND TALKED TO WORLD GEOGRAPHY TEACHER.
[2018-01-10] MEDS: PANTOPRAZOLE 40 MG VIAL IV SCH (23:07)
[2018-01-11] VITALS (60 sets, daily range): BP systolic 64–144; BP diastolic 21–94
[2018-01-11 04:46] LABS: EOSINOPHILS % (AUTO) 0.4 % (0.0-6.0); HEMATOCRIT 29 % (33-45); HEMOGLOBIN 9.3 g/dL (11.5-14.8); LYMPHOCYTES # (AUTO) 0.7 /CMM (0.8-4.8); LYMPHOCYTES % (AUTO) 7.7 % (20.0-44.0); MEAN CORPUSCULAR HEMOGLOBIN 28 PG (26.0-33.0); MEAN CORPUSCULAR HGB CONC 32 g/dl (31.0-36.0); MEAN CORPUSCULAR VOLUME 87 fL (82-100); MONOCYTES # (AUTO) 0.6 /CMM (0.1-1.30); MONOCYTES % (AUTO) 6.5 % (2.0-12.0); NEUTROPHILS # (AUTO) 8.2 /CMM (1.8-8.9); NEUTROPHILS % (AUTO) 85.4 % (43.0-81.0); PLATELET COUNT (AUTO) 146 /CMM (150-450); RED BLOOD CELL COUNT(AUTO) 3.37 MIL/uL (4.0-5.2); WHITE BLOOD COUNT (AUTO) 9.7 K/uL (4.3-11.0)
[2018-01-11 05:01] LABS: ALANINE AMINOTRANSFERASE 21 U/L (12-78); ALBUMIN 1.5 g/dL (3.4-5.0); ALKALINE PHOSPHATASE 61 U/L (46-116); ASPARTATE AMINOTRANSFERASE 43 U/L (15-37); CALCIUM, SERUM 7.5 mg/dL (8.5-10.1); CARBON DIOXIDE 31 mmol/L (21-32); CHLORIDE 108 mmol/L (98-107); CREATININE 1.4 mg/dL (0.6-1.3); GLUCOSE 63 mg/dL (74-106); MAGNESIUM 2.1 mg/dL (1.8-2.4); POTASSIUM 3.3 mmol/L (3.5-5.1); SODIUM SERUM 146 mmol/L (136-145); TOTAL PROTEIN, SERUM 4.9 g/dL (6.4-8.2); UREA NITROGEN, BLOOD 34 mg/dL (7-18)
[2018-01-11] MEDS: PIPERACILLIN /TAZOBACTAM 2.25 G in IV D5W 50 ML IV SCH ×3 (05:18→21:28)
--- NOTE | 2018-01-11 06:35 | NUR ---
RN NOTES PT REMAINED ON ETT WITH VENT TOLERATED WELL. AIRWAY PATENT. SATING REMAINED >92%. TELE MONITOR STILL V PACING 100% HR 70'S . BILATERAL CHEST TUBE INTACT NO LEAKING, LEFT SIDE STILL DRAINING WITH YELLOWISH COLOR DRAINAGE. RIGHT CHEST TUBE NO DRAINAGE. AFEBRILE. F/C DRAINED WITH PATY COLOR URINE. OFF FROM PRESSORS NOT FOLLOWING COMMAND PT KEEP MOVING HEAD/ NO MOVEMENT FROM UPPER EXT, LOWER EXT WEAK MOVEMENT SHOWN. IV SITE REMAINED INTACT AND PATENT. S/E BY DR. BAHENA WITH NEW ORDER OF KCL 60 MEQ. NOT AVAILABLE AT THIS TIME. WILL WAIT UNTIL PHARMACY COMES. WILL ENDORSED TO AM NURSE FOR CONTINUITY OFCA RE TO AM NURSE.
--- NOTE | 2018-01-11 07:33 | NUR ---
INITIAL GIFT SHOP ASSISTANT NOTE RCVD PT ABLE TO OPEN EYES, UNABLE TO FOLLOW COMMANDS, INTUBATED ETT 7.5 23 AT LIP TOLERATING ORDERED VENT SETTINGS. OFF SEDATION. OFF RESTRAINTS. V-PACING ON TELE. BILATERAL CHEST TUBES IN PLACE RIGHT SIDE NO OUTPUT OBSERVED, LEFT SEROSANGUINEOUS OUTPUT. DE LA CRUZ TO GRAVITY DRAINING CLEAR, YELLOW URINE. IV SITES C/D/I/PATENT. IVF INFUSING TKO NO S/O INFILTRATION/PHLEBITIS OBSERVED. WILL CONTINUE TO MONITOR PT FOR SAFETY AND COMFORT. BED IN LOW AND LOCKED POSITION. Addendum: 01/11/18 at 1837 by SHITAL GARCIA RN CORRECTION TO ABOVE NOTE ETT 7.0 NOT 7.5
[2018-01-11] MEDS ORDERED: IV D5W 1,000 ML IV PRN (09:00)
[2018-01-11] MEDS ORDERED: Potassium Chloride 20 MEQ in IV D5W 1,000 ML IV PRN (09:00)
[2018-01-11] MEDS: FUROSEMIDE 20 MG/2 ML VIAL IV SCH ×2 (09:11→17:00)
[2018-01-11] MEDS: Z GUARD REMEDY 2 OZ OINT TP SCH (09:12)
--- NOTE | 2018-01-11 10:11 | NUR ---
INSIDE SALES ADVISOR NOTE NG TUBE INSERTED ORDERED. PLACEMENT VERIFIED BY 2nd RN AV MENARD. WATER FLUSHES ADMINISTERED ORDERED.
[2018-01-11] MEDS: POTASSIUM CL. PREMIX PERIPHER. 50 ML IV SCH ×6 (10:16→18:39)
[2018-01-11] MEDS: POTASSIUM CHLORIDE 20 MEQ POWDER PACKET GT SCH (10:16)
--- NOTE | 2018-01-11 10:55 | NUR ---
called to speak to nurse regarding patient , she was busy and will call when she's available
--- NOTE | 2018-01-11 13:18 | NUR ---
COMPUTER ASSEMBLER NOTE PT TRANSPORTED TO RADIOLOGY FOR CT HEAD PER PROTOCOL. WITH RT AND RN AT BEDSIDE. PT'S VITAL SIGNS STABLE DURING AND AFTER TRANSPORT.
[2018-01-11] MEDS: LORAZEPAM INJ 2 MG/ML VIAL IV PRN (16:21)
[2018-01-11] MEDS: FIBERSOURCE HN 1,000 ML BOTTLE GT PRN (18:13)
--- NOTE | 2018-01-11 18:27 | NUR ---
HISTORIAN RESEARCH ASSISTANT NOTE PT REMAINS LETHARGIC OPENING EYES AND UNABLE TO FOLLOW SIMPLE COMMANDS. V-PACING ON TELE, TOLERATING ORDERED VENT SETTINGS. OG-TUBE PLACEMENT VERIFIED BY AUSCULTATION/ASPIRATION. NO RESIDUAL OBTAINED. TUBE FEEDING STARTED. DE LA CRUZ TO GRAVITY DRAINING CLEAR, YELLOW URINE. IV SITES REMAIN C/D/I/PATENT. NO S/O INFILTRATION/PHLEBITIS OBSERVED. PT'S CARE WILL BE ENDORSED TO RESTAURANT HOURLY MANAGER RN FOR CONTINUITY OF CARE. BED IN LOW AND LOCKED POSITION. Addendum: 01/11/18 at 1836 by SHITAL GARCIA RN ADDENDUM BILATERAL CHEST TUBE DRESSINGS CHANGED, SEROUS FLUID OBSERVED AT THE PROXIMAL END OF CHEST TUBE, NOT DRAINING TO ATRIUM CANISTER. LEFT CHEST TUBE SEROSANGUINEOUS FLUID OBSERVED AT THE PROXIMAL END OF TUBE, NOT DRAINING TO CANISTER. NO AIR LEAKS OR KINKS OBSERVED IN TUBING. AV MENARD AWARE OF FINDINGS. BOTH DRESSINGS REMAIN C/D/I.
--- NOTE | 2018-01-11 19:30 | NUR ---
RN NOTES RECEIVED PT ON BED. MOVING HEAD BUT UNABLE TO FOLLOW COMMAND. PUPIL REACTING TO LIGHT. WITH ETT 7.5/23CM @ LIP CONNECTED TO VENT SETTING AC 14 TV 400 FIO2 40% NO PEEP. V PACING 100% ON TELE MONITOR HR 70'S. BILATERAL CHEST TUBE INTACT WITH SMALL AMT. SEROUS DRAINAGE ON RIGHT SIDE AND SEROSANGUINEOUS ON LEFT SIDE. INTACT NO AIR LEAKING. WITH NGTF INTACT AND PATENT WITH ZERO RESIDUAL. IV SITE ON LIJ HL AND RIGHT UPPER ARM PICC LINE INTACT AND PATENT. OOZING SKIN ON BUE. KEPT BUE AND BLE OFFLOADED WITH PILLOWS. KEPT PT CLEAN AND DRY. WILL MONITOR CLOSELY.
--- NOTE | 2018-01-11 20:28 | NUR ---
PT RECEIVED INTUBATED 7.0 ETT SECURED AT 23CM AT THE LIP ON 840 VENT. PT TOLERATING VENT SETTINGS. SX'D FOR LARGE AMT OF FROTHY TINGED SECRETIONS. VENT ALARMS SET AND AUDIBLE. AMBU BAG AT BEDSIDE. VENT PLUGGED INTO RED OUTLET. WILL CONTINUE TO MONITOR. Addendum: 01/11/18 at 2031 by MICAH COLEMAN RT Amended: Links added.
[2018-01-11] MEDS: PANTOPRAZOLE 40 MG VIAL IV SCH (21:33)
[2018-01-12] VITALS (100 sets, daily range): BP systolic 69–138; BP diastolic 18–73
[2018-01-12] MEDS: PIPERACILLIN /TAZOBACTAM 2.25 G in IV D5W 50 ML IV SCH ×3 (04:37→20:45)
[2018-01-12 04:45] LABS: EOSINOPHILS % (AUTO) 0.5 % (0.0-6.0); HEMATOCRIT 29 % (33-45); LYMPHOCYTES # (AUTO) 0.8 /CMM (0.8-4.8); LYMPHOCYTES % (AUTO) 9.8 % (20.0-44.0); MEAN CORPUSCULAR HEMOGLOBIN 27 PG (26.0-33.0); MEAN CORPUSCULAR HGB CONC 32 g/dl (31.0-36.0); MEAN CORPUSCULAR VOLUME 87 fL (82-100); MONOCYTES # (AUTO) 0.7 /CMM (0.1-1.30); MONOCYTES % (AUTO) 8.3 % (2.0-12.0); NEUTROPHILS % (AUTO) 81.4 % (43.0-81.0); PLATELET COUNT (AUTO) 157 /CMM (150-450); RDW COEFFICIENT OF VARIATION 34.7 (11.5-15.0); RED BLOOD CELL COUNT(AUTO) 3.29 MIL/uL (4.0-5.2); WHITE BLOOD COUNT (AUTO) 8.6 K/uL (4.3-11.0)
[2018-01-12 05:04] LABS: ALANINE AMINOTRANSFERASE 30 U/L (12-78); ALBUMIN 1.5 g/dL (3.4-5.0); ALKALINE PHOSPHATASE 74 U/L (46-116); ASPARTATE AMINOTRANSFERASE 53 U/L (15-37); BILIRUBIN,TOTAL 5.6 mg/dL (0.2-1.0); CALCIUM, SERUM 7.7 mg/dL (8.5-10.1); CARBON DIOXIDE 30 mmol/L (21-32); CHLORIDE 109 mmol/L (98-107); CREATININE 1.3 mg/dL (0.6-1.3); GLUCOSE 90 mg/dL (74-106); MAGNESIUM 2.1 mg/dL (1.8-2.4); POTASSIUM 4.1 mmol/L (3.5-5.1); SODIUM SERUM 148 mmol/L (136-145); TOTAL PROTEIN, SERUM 5.2 g/dL (6.4-8.2); UREA NITROGEN, BLOOD 31 mg/dL (7-18)
[2018-01-12] MEDS: NOREPINEPHRINE 8 MG in IV D5W 500 ML IV PRN (06:21)
--- NOTE | 2018-01-12 07:56 | NUR ---
WOUND CARE CONSULT: PT SEEN FOR LEFT ANTERIOR LATERAL THIGH AREA OF WEEPING EDEMA. RECOMMENDATIONS MADE FOR SKIN PROTECTION AND DISCUSSED WITH NURSING STAFF. PT IS INTUBATED. ALL SKIN PROTECTION MEASURES IN PLACE. IN AGREEMENT WITH PLAN OF CARE. Addendum: 01/12/18 at 0757 by BRENT CONTEH WNDNU Amended: Links added.
[2018-01-12] MEDS: PANTOPRAZOLE 40 MG/PACK PACK NG SCH (08:46)
[2018-01-12] MEDS: FUROSEMIDE 20 MG/2 ML VIAL IV SCH ×2 (08:46→16:41)
[2018-01-12] MEDS: POTASSIUM CHLORIDE 20 MEQ POWDER PACKET GT SCH (08:46)
[2018-01-12] MEDS: Z GUARD REMEDY 2 OZ OINT TP SCH (08:47)
[2018-01-12 09:03] LABS: ABG BASE EXCESS 6.1 mmol/L; ABG OXYGEN SATURATION 98.1 % (92.0-98.5); ABG PCO2 45.5 mmHg (35.0-45.0); ABG PH 7.449 (7.350-7.450); ABG PO2 119.8 mmHg (75.0-100.0); AaDO2 113.1 mmHg; COHb 1.2 % (0.5-1.5); MetHb 0.9 % (0.0-1.5); PEEP,BG 0 cm H2O; SITE, ABG Left Brachial; VT, ABG 400 mL
--- NOTE | 2018-01-12 09:34 | NUR ---
GROUP DYNAMICS INSTRUCTOR NOTE 0720: Received patient awake, opens eyes but does not follow commands. With ETT to eunice,t tolerated settings well, no respiratory distress noted at this time. OGT intact, feeding tolerated well. Kept HOB elevated. MIKE PICC intact, on Levophed @ 2mcg, will titrate as ordered. Noted V pacing 70 in the monitor. With bilateral chest tibes intact, connected to 20cm wall suction, no discharges noted from previous shift, will monitor. FGoley cath intact, noted with minimal amount of peyman colored urine drained to BSD. 0900: S/E by Dr. Greene, no new order at this time. 0915: ABG resulted, no changes needed at this time, awaiting pulmo MD rounds. 0930: No significant changes noted at this time, kept clean, warm and dry. Needs anticipated, will continue to monitor.
[2018-01-12] MEDS ORDERED: MORPHINE SULFATE INJ 4 MG/ML DISP.SYRIN IV PRN (16:00)
--- NOTE | 2018-01-12 18:23 | NUR ---
PSYCHOLOGIST PERSONNEL NOTE 1030: S/E by Dr. Mares, no new order at this time. 1630: Noted patient with frequent movement of the head, trying to minimize use of sedation, obtained order from Dr. Mares fro Morphine 2 q4 PRN. 1820: Morphine effective AEB less head movements. No any significant changes noted at this time. Kept clean, warm and dry. Needs attended.
--- NOTE | 2018-01-12 19:30 | NUR ---
ICU/RN RECEIVED PT ON VENT VIA ORAL ETT,ON LEVOPHED DRIP AT 4MCG/MIN TO KEEP SBP>100MMHG,WILL MONITOR CLOSELY.PT OBTUNDED MOVE LOWER EXTREMITIES SPONTANEOUSLY BUT NOT TO COMMAND.MONITOR SHOWS V-PACED.T.F CHECKED FOR RESIDUAL,0-5ML OBTAINED.C.T X2 ONE ON RT AND ONE ON LEFT.MINISCULE DRAINAGE FR LT C.T.NO AIR LEAK NOTED.DRESSING DRY AND INTACT.
[2018-01-12] MEDS: IV NS 0.9% 250 ML IV PRN (22:55)
[2018-01-13] VITALS (92 sets, daily range): BP systolic 84–143; BP diastolic 29–117
[2018-01-13] MEDS: LORAZEPAM INJ 2 MG/ML VIAL IV PRN ×2 (01:29→09:17)
--- NOTE | 2018-01-13 01:29 | NUR ---
ICU/RN RESTLESS AND AGITATED,KEEPS BUCKING THE VENT.MEDICATED W/0.5MG OF ATIVAN IVP W/.IMMEDIATE EFFECT.
[2018-01-13 04:39] LABS: BASOPHILS % (AUTO) 0.1 % (0.0-2.0); EOSINOPHILS # (AUTO) 0.1 /CMM (0.0-0.7); EOSINOPHILS % (AUTO) 1.2 % (0.0-6.0); HEMATOCRIT 29 % (33-45); LYMPHOCYTES # (AUTO) 0.8 /CMM (0.8-4.8); LYMPHOCYTES % (AUTO) 9.6 % (20.0-44.0); MEAN CORPUSCULAR HEMOGLOBIN 27 PG (26.0-33.0); MEAN CORPUSCULAR HGB CONC 32 g/dl (31.0-36.0); MEAN CORPUSCULAR VOLUME 87 fL (82-100); MONOCYTES # (AUTO) 0.9 /CMM (0.1-1.30); MONOCYTES % (AUTO) 9.8 % (2.0-12.0); NEUTROPHILS % (AUTO) 79.3 % (43.0-81.0); PLATELET COUNT (AUTO) 178 /CMM (150-450); RDW COEFFICIENT OF VARIATION 32.4 (11.5-15.0); RED BLOOD CELL COUNT(AUTO) 3.29 MIL/uL (4.0-5.2); WHITE BLOOD COUNT (AUTO) 8.8 K/uL (4.3-11.0)
[2018-01-13] MEDS: PIPERACILLIN /TAZOBACTAM 2.25 G in IV D5W 50 ML IV SCH ×3 (04:39→21:47)
[2018-01-13 04:55] LABS: ALANINE AMINOTRANSFERASE 29 U/L (12-78); ALBUMIN 1.5 g/dL (3.4-5.0); ALKALINE PHOSPHATASE 114 U/L (46-116); ASPARTATE AMINOTRANSFERASE 53 U/L (15-37); BILIRUBIN,TOTAL 4.2 mg/dL (0.2-1.0); CALCIUM, SERUM 7.3 mg/dL (8.5-10.1); CARBON DIOXIDE 31 mmol/L (21-32); CHLORIDE 109 mmol/L (98-107); CREATININE 1.2 mg/dL (0.6-1.3); GLUCOSE 147 mg/dL (74-106); MAGNESIUM 1.9 mg/dL (1.8-2.4); PHOSPHORUS 2.1 mg/dL (2.5-4.9); POTASSIUM 3.7 mmol/L (3.5-5.1); SODIUM SERUM 147 mmol/L (136-145); TOTAL PROTEIN, SERUM 5.4 g/dL (6.4-8.2); UREA NITROGEN, BLOOD 31 mg/dL (7-18)
--- NOTE | 2018-01-13 06:00 | NUR ---
ICU/RN LEVOPHED TITRATED DOWN TO 6MCG/MIN ZYB=292'S.V-PACED 90% OF THE TIME.U/O ADEQUATE.TOLERATING FEEDINGS WELL.
--- NOTE | 2018-01-13 06:30 | NUR ---
ICU/RN DR. BAHENA IN TO SEE PT.
[2018-01-13] MEDS: NOREPINEPHRINE 8 MG in IV D5W 500 ML IV PRN (07:48)
[2018-01-13] MEDS: Z GUARD REMEDY 2 OZ OINT TP SCH (08:22)
[2018-01-13] MEDS: POTASSIUM CHLORIDE 20 MEQ POWDER PACKET GT SCH (08:22)
[2018-01-13] MEDS: PANTOPRAZOLE 40 MG/PACK PACK NG SCH (08:22)
[2018-01-13] MEDS: FUROSEMIDE 20 MG/2 ML VIAL IV SCH (08:22)
[2018-01-13] MEDS ORDERED: POTASSIUM PHOSPHATE MM 7.5 MMOL in IV D5W 100 ML IV SCH (11:30)
[2018-01-13] MEDS: K PHOS NEUTRAL 250 MG TABLET PO SCH ×3 (12:10→21:46)
[2018-01-13] MEDS: FIBERSOURCE HN 1,000 ML BOTTLE GT PRN (13:41)
[2018-01-13] MEDS: MORPHINE SULFATE INJ 4 MG/ML DISP.SYRIN IV PRN ×2 (15:22→22:39)
--- NOTE | 2018-01-13 17:52 | NUR ---
INSIDE SALES ASSISTANT NOTE 0720: Received patient awake, opens eyes but does not follow commands. With ETT to vent, tolerated settings well. With OGT intact, feeding tolerated. Kept HOB elevated. MIKE PICC intact, on 6mcg of Levo, will titrate as ordered. With Foely cath intact, noted with peyman colored urine drained to BSD. With bilateral chest tubes, noted with no output on the right and left has minimal serous output, both connected to wall suction. V pacing with BBB 70 on the monitor. 1100: S/E by Dr. Mares, no new order at this time. 1200: S/E by dr. Greene, with order to DC sedation meds and may use Morphine 2 q2 for episode of frequent moving of the head, biting tubes or facial grimace. Also to make water flushes through GT 200 q6 from 200 q8. said to keep off sedation and patient may be more awake in time, enceph may be due to the poor liver function. Made Dr. Mares aware, no plan for transfer to other hospital just yet. 1750: No any significant changes. Kept clean, warm and dry. Needs anticipated. Will continue to monitor.
--- NOTE | 2018-01-13 20:00 | NUR ---
ICU/RN RECEIVED PT ON VENT VIA ORAL ETT,ON LEVOPHED DRIP AT 6MCG/MIN TO KEEP SBP>100MMHG,WILL MONITOR CLOSELY.PT OBTUNDED MOVE LOWER EXTREMITIES SPONTANEOUSLY BUT NOT TO COMMAND.MONITOR SHOWS V-PACED.T.F CHECKED FOR RESIDUAL,0-5ML OBTAINED.C.T X2 ONE ON RT AND ONE ON LEFT.MINISCULE DRAINAGE FR LT C.T.NO AIR LEAK NOTED.DRESSING DRY AND INTACT.
--- NOTE | 2018-01-13 23:24 | NUR ---
PT RECEIVED INTUBATED 7.0 ETT SECURED AT 23CM AT THE LIP ON 840 VENT. PT TOLERATING VENT SETTINGS. SX'D FOR LARGE AMT OF FROTHY TINGED SECRETIONS. VENT ALARMS SET AND AUDIBLE. AMBU BAG AT BEDSIDE. VENT PLUGGED INTO RED OUTLET. WILL CONTINUE TO MONITOR. Addendum: 01/13/18 at 2325 by BEAU GARCIA RT Amended: Links added.
[2018-01-14] VITALS (89 sets, daily range): BP systolic 77–141; BP diastolic 16–104
[2018-01-14] MEDS: PIPERACILLIN /TAZOBACTAM 2.25 G in IV D5W 50 ML IV SCH ×3 (04:43→21:01)
[2018-01-14] MEDS: NOREPINEPHRINE 8 MG in IV D5W 500 ML IV PRN ×2 (04:48→18:02)
[2018-01-14 04:49] LABS: BASOPHILS % (AUTO) 0.5 % (0.0-2.0); EOSINOPHILS # (AUTO) 0.2 /CMM (0.0-0.7); EOSINOPHILS % (AUTO) 3.2 % (0.0-6.0); HEMATOCRIT 28 % (33-45); HEMOGLOBIN 8.8 g/dL (11.5-14.8); LYMPHOCYTES # (AUTO) 0.6 /CMM (0.8-4.8); LYMPHOCYTES % (AUTO) 7.9 % (20.0-44.0); MEAN CORPUSCULAR HEMOGLOBIN 28 PG (26.0-33.0); MEAN CORPUSCULAR HGB CONC 32 g/dl (31.0-36.0); MEAN CORPUSCULAR VOLUME 88 fL (82-100); MONOCYTES # (AUTO) 0.7 /CMM (0.1-1.30); MONOCYTES % (AUTO) 9.9 % (2.0-12.0); NEUTROPHILS # (AUTO) 5.8 /CMM (1.8-8.9); NEUTROPHILS % (AUTO) 78.5 % (43.0-81.0); PLATELET COUNT (AUTO) 164 /CMM (150-450); RDW COEFFICIENT OF VARIATION 33.7 (11.5-15.0); RED BLOOD CELL COUNT(AUTO) 3.17 MIL/uL (4.0-5.2); WHITE BLOOD COUNT (AUTO) 7.4 K/uL (4.3-11.0)
[2018-01-14] MEDS: MORPHINE SULFATE INJ 4 MG/ML DISP.SYRIN IV PRN (04:59)
[2018-01-14 05:06] LABS: CALCIUM, SERUM 7.2 mg/dL (8.5-10.1); CARBON DIOXIDE 36 mmol/L (21-32); CHLORIDE 110 mmol/L (98-107); CREATININE 1.1 mg/dL (0.6-1.3); GLUCOSE 200 mg/dL (74-106); MAGNESIUM 1.9 mg/dL (1.8-2.4); PHOSPHORUS 2.9 mg/dL (2.5-4.9); POTASSIUM 4.1 mmol/L (3.5-5.1); SODIUM SERUM 150 mmol/L (136-145); UREA NITROGEN, BLOOD 29 mg/dL (7-18)
--- NOTE | 2018-01-14 07:40 | NUR ---
ICU/RN ENDORSED PT ON VENT VIA ORAL ETT,ON LEVOPHED DRIP AT 6MCG/MIN TO KEEP SBP>100MMHG,WILL MONITOR CLOSELY.PT OBTUNDED MOVE LOWER EXTREMITIES SPONTANEOUSLY BUT NOT TO COMMAND.MONITOR SHOWS V-PACED.T.F CHECKED FOR RESIDUAL, 40 CC AT 05AM, HELD TILL 06AM AND RESUMED ,WITH 0 RESIDUAL . OBTAINED.C.T X2 ONE ON RT AND ONE ON LEFT.MINISCULE DRAINAGE FR LT C.T.NO AIR LEAK NOTED.DRESSING DRY AND INTACT.
--- NOTE | 2018-01-14 07:53 | NUR ---
INITIAL CONTENT ASSISTANT NOTE RCVD PT ABLE TO OPEN EYES TO PAIN/MOVEMENT OF UPPER/LOWER EXTREMITIES. UNABLE TO FOLLOW COMMANDS AT THIS TIME. VPACING ON TELE WITH OCCASIONAL PVCs. TOLERATING ORDERED VENT SETTINGS WITH GOOD SATURATION. BILATERAL CHEST TUBES IN PLACE PER CX. SEROSANGUINEOUS FLUID OBSERVED IN TUBING OF LEFT SIDE. NO DRAINAGE OBSERVED ON RIGHT SIDE. OG-TUBE PLACEMENT VERIFIED BY AUSCULTATION/ASPIRATION. NO RESIDUAL OBTAINED UPON ASPIRATING. DE LA CRUZ TO GRAVITY DRAINING YELLOW URINE. MIKE PICC C/D/I/PATENT. IVF INFUSING TKO. PT ON LEVO. WILL CONTINUE TO MONITOR PT FOR SAFETY AND COMFORT. BED IN LOW AND LOCKED POSITION.
[2018-01-14] MEDS: PANTOPRAZOLE 40 MG/PACK PACK NG SCH (08:52)
[2018-01-14] MEDS: FUROSEMIDE 20 MG/2 ML VIAL IV SCH (08:52)
[2018-01-14] MEDS: K PHOS NEUTRAL 250 MG TABLET PO SCH (08:52)
[2018-01-14] MEDS: POTASSIUM CHLORIDE 20 MEQ POWDER PACKET GT SCH (08:52)
[2018-01-14] MEDS: Z GUARD REMEDY 2 OZ OINT TP SCH (08:53)
[2018-01-14] MEDS: FIBERSOURCE HN 1,000 ML BOTTLE GT PRN (08:54)
[2018-01-14 09:20] LABS: ABG BASE EXCESS 6.3 mmol/L; ABG OXYGEN SATURATION 96.8 % (92.0-98.5); ABG PCO2 52.6 mmHg (35.0-45.0); ABG PH 7.403 (7.350-7.450); AaDO2 126.7 mmHg; COHb 0.9 % (0.5-1.5); MetHb 0.5 % (0.0-1.5); O2Hb 95.4 % (94.0-97.0); PEEP,BG 0 cm H2O; SITE, ABG Right Radial; VENT MODE, BG AC 14 400 +0 40%; VT, ABG 400 mL
[2018-01-14] MEDS: IPRATROPIUM NEB FS 0.5 MG/2.5 ML AMPUL.NEB NEB SCH ×3 (11:30→19:45)
[2018-01-14] MEDS: methylPREDNISolone SOD SUCC 40 MG/ML VIAL IV SCH ×2 (11:30→12:50)
--- NOTE | 2018-01-14 12:50 | NUR ---
HOOKER INSPECTOR NOTE DR. VARGAS IN UNIT UPDATED ON PT'S CONDITION. HE RECOMMENDED TO INCREASE WATER FLUSHES TO 300 ML EVERY 6 HRS. ORDER ENTERED AND ACKNOWLEDGED. DR. KATE IN UNIT ALSO UPDATED ON PT'S CONDITION. SOLUMEDROL 1300 DOSE HELD PER PHARMACIST RECOMMENDATION SINCE PREVIOUS DOSE WAS GIVEN AT 1130.
[2018-01-14] MEDS: ALBUTEROL FS 2.5 MG/0.5 ML VIAL.NEB NEB SCH ×2 (13:38→19:45)
--- NOTE | 2018-01-14 14:42 | NUR ---
RT NOTE: PATIENT RECEIVED ORALLY INTUBATED WITH 7.0 ETT SECURED AT 23CM MID LIP LINE ON PB 840 VENT. ETT MOVED FROM LEFT TO RIGHT VIA ANCHOR FAST. ALARMS VERIFIED AND AUDIBLE. SUCTIONED AND LAVAGED SMALL AMOUNT OF THIN BLOOD TINGED SECRETIONS. VENT PLUGGED INTO RED OUTLET. AMBU BAG AT [facility].
--- NOTE | 2018-01-14 19:15 | NUR ---
TIMBER PACKER NOTE PT UNABLE TO FOLLOW COMMANDS, VPACING ON TELE WITH OCCASIONAL PVCs. TOLERATING ORDERED VENT SETTINGS. NO OUTPUT FROM RIGHT CHEST TUBE, ONLY 20 ML OF SEROUS FLUID OVER THE LEFT CHEST TUBE. OG-TUBE PLACEMENT VERIFIED BY AUSCULTATION/ASPIRATION. RESIDUAL OF 30 ML FOUND. DE LA CRUZ TO GRAVITY WITH GOOD URINARY OUTPUT. IV SITE C/D/I/PATENT. NO S/O INFILTRATION/PHLEBITIS OBSERVED UPON FLUSHING. PT'S CARE ENDORSED TO UNDERCOLLAR BASTER RN FOR CONTINUITY OF CARE. CALL LIGHT WITHIN REACH. BED IN LOW AND LOCKED POSITION.
--- NOTE | 2018-01-14 20:22 | NUR ---
received pt from day shift, alert, does not follow commands, V pace, on levo at 6mcg, on the vent, lungs congested, BL chest tubes intact, no leak noted, OG to feeding, tolerates well, f/c good output, v/s stable, no pain, pt turned and repositioned.
[2018-01-15] VITALS (90 sets, daily range): BP systolic 68–134; BP diastolic 34–80
--- NOTE | 2018-01-15 00:36 | NUR ---
pt is resting in the bed, on levo at 6mcg, v/s stable, no pain, pt turned and repositioned q2hrs.
[2018-01-15] MEDS: ALBUTEROL FS 2.5 MG/0.5 ML VIAL.NEB NEB SCH ×4 (01:48→19:33)
[2018-01-15] MEDS: IPRATROPIUM NEB FS 0.5 MG/2.5 ML AMPUL.NEB NEB SCH ×4 (01:48→19:33)
[2018-01-15] MEDS: MORPHINE SULFATE INJ 4 MG/ML DISP.SYRIN IV PRN (04:13)
--- NOTE | 2018-01-15 04:20 | NUR ---
pt is resting in the bed, V pace, receiving levo at 6mcg, tolerates feeding, v/s stable, no pain, pt cleaned, changed and repositioned q2hrs.
[2018-01-15] MEDS: PIPERACILLIN /TAZOBACTAM 2.25 G in IV D5W 50 ML IV SCH (05:02)
[2018-01-15 05:51] LABS: CALCIUM, SERUM 7.5 mg/dL (8.5-10.1); CARBON DIOXIDE 34 mmol/L (21-32); CHLORIDE 105 mmol/L (98-107); GLUCOSE 132 mg/dL (74-106); POTASSIUM 4.1 mmol/L (3.5-5.1); SODIUM SERUM 144 mmol/L (136-145); UREA NITROGEN, BLOOD 30 mg/dL (7-18)
[2018-01-15] MEDS ORDERED: OLANZAPINE 10 MG VIAL IM ONE ×2 (06:09→06:30)
--- NOTE | 2018-01-15 07:44 | NUR ---
WOUND CARE CONSULT: PT SEEN PREVIOUSLY FOR SKIN/WOUND ASSESSMENT NOW FOLLOWED BY SURGEON FOR WOUNDS. DEFER TO SURGEON AT THIS TIME. PT REMAINS INTUBATED. ALL SKIN PROTECTION MEASURES IN PLACE AND DISCUSSED WITH NURSING STAFF. MD IN AGREEMENT WITH PLAN OF CARE.
--- NOTE | 2018-01-15 07:48 | NUR ---
INITIAL DIAMOND SORTER NOTE RCVD PT UNABLE TO FOLLOW COMMANDS OR RESPOND TO HER NAME. PT OPENS EYES TO PAINFUL STIMULI, SPONTANEOUSLY KICKS WITH LEGS, AND ROTATES HEAD FROM SIDE TO SIDE.. V-PACED ON TELE. TOLERATING ORDERED VENT SETTINGS WELL. BILATERAL CHEST TUBES IN PLACE. BOTH DRESSINGS SOAKED ON FLUID WERE CHANGED. OG-TUBE PLACEMENT VERIFIED BY AUSCULTATION/ASPIRATION. NO RESIDUAL ASPIRATED. [place]UZ TO GRAVITY DRAINING YELLOW URINE. MIKE PICC C/D/I/PATENT. NO S/O INFILTRATION/PHLEBITIS OBSERVED IVF INFUSING TKO, LEVO ON BOARD FOR PRESSURE SUPPORT. WILL CONTINUE TO MONITOR PT FOR SAFETY AND COMFORT. BED IN LOW AND LOCKED POSITION.
[2018-01-15] MEDS: POTASSIUM CHLORIDE 20 MEQ POWDER PACKET GT SCH (08:17)
[2018-01-15] MEDS: FUROSEMIDE 20 MG/2 ML VIAL IV SCH ×3 (08:17→17:03)
[2018-01-15] MEDS: PANTOPRAZOLE 40 MG/PACK PACK NG SCH (08:17)
[2018-01-15] MEDS: methylPREDNISolone SOD SUCC 40 MG/ML VIAL IV SCH (08:17)
[2018-01-15] MEDS: Z GUARD REMEDY 2 OZ OINT TP SCH (08:17)
--- NOTE | 2018-01-15 08:40 | NUR ---
MEDICATION NOTE LASIX 20 MG GIVEN THIS AM. ORDER CHANGED TO BID WILL ADMINISTER PM DOSE ORDERED.
[2018-01-15] MEDS ORDERED: OLANZAPINE 10 MG VIAL IM PRN (09:00)
[2018-01-15 09:39] LABS: ABG BASE EXCESS 7.5 mmol/L; ABG OXYGEN SATURATION 95.3 % (92.0-98.5); ABG PCO2 54.3 mmHg (35.0-45.0); ABG PH 7.407 (7.350-7.450); ABG PO2 80.9 mmHg (75.0-100.0); AaDO2 105.5 mmHg; COHb 0.7 % (0.5-1.5); MetHb 0.2 % (0.0-1.5); O2Hb 94.4 % (94.0-97.0); PEEP,BG 0 cm H2O; SITE, ABG Left Radial; VT, ABG 400 mL
[2018-01-15] MEDS ORDERED: ONDANSETRON HCL/PF 4 MG/2 ML VIAL IV PRN (11:00)
--- NOTE | 2018-01-15 11:26 | NUR ---
CHIEF DEPUTY NOTE DR. VARGAS PAGEHelena TO GET NAUSEA MEDICATION ORDERED. PT OBSERVED VOMITING A SMALL AMOUNT OF TUBE FEEDING. TUBE FEEDING WAS HELD FOR AN HOUR, NO GASTRIC RESIDUAL OBTAINED UPON ASPIRATING, ORAL CARE PROVIDED AND PT WAS SUCTIONED VIA PO/ETT, THICK SECRETIONS SUCTIONED. WILL CONTINUE TO MONITOR.
--- NOTE | 2018-01-15 12:14 | NUR ---
GUARD MANAGER NOTE PT OBSERVED SQUIRMING IN BED, RESTLESS. PT WAS REPOSITIONED AND APPEARS CALM AT THIS TIME. TUBE FEEDING WAS RE-STARTED AND HELD AGAIN. PT OBSERVED VOMITING A SMALL AMOUNT OF TUBE FEEDING. PT ORALLY SUCTIONED, HEAD OF BED ELEVATED, ORAL CARE PROVIDED. WILL CONTINUE TO MONITOR.
[2018-01-15 15:08] LABS: APPEARANCE,URINE CLEAR (CLEAR); BILIRUBIN,URINE NEGATIVE (NEGATIVE); BLOOD, URINE 3+ Ery/uL (NEGATIVE); COLOR,URINE YELLOW (YELLOW); KETONES,URINE NEGATIVE (NEGATIVE); LEUKOCYTE ESTERASE ,URINE NEGATIVE (NEGATIVE); NITRITE, URINE NEGATIVE (NEGATIVE); PROTEIN,URINE NEGATIVE (NEGATIVE); UGLUCOSE NEGATIVE (NEGATIVE)
[2018-01-15 15:19] LABS: RBC,URINE 21-50 /HPF (0-2)
[2018-01-15 15:20] LABS: BACTERIA,URINE Few /HPF (None Seen); SQUAMOUS EPITHELIAL CELL,UR Few /HPF (None Seen); WBC,URINE NONE SEEN /HPF (0-3); YEAST,URINE Few /HPF (None Seen)
[2018-01-15] MEDS: NOREPINEPHRINE 8 MG in IV D5W 500 ML IV PRN (17:04)
--- NOTE | 2018-01-15 17:14 | NUR ---
BELT MAKER NOTE PT APPEARS TO BE MORE AWAKE AND ACKNOWLEDGING INFORMATION BEING GIVEN, ABLE TO FOLLOW SOME SIMPLE COMMANDS BUT NOT CONSECUTIVELY. WILL CONTINUE TO MONITOR.
--- NOTE | 2018-01-15 18:56 | NUR ---
RIVETING MACHINE OPERATOR AUTOMATIC NOTE PT MORE AWAKE AND AWARE, ABLE TO FOLLOW SOME SIMPLE COMMANDS SUCH SQUEEZE FINGERS WITH HANDS, V-PACE RHYTHM ON TELE. INTUBATED TOLERATING ORDERED VENT SETTINGS WELL. BILATERAL CHEST TUBES SEROSANGUINEOUS DRAINAGE OBSERVED OVER LEFT SIDE. NO OUTPUT ON RIGHT. [place]Z TO GRAVITY DRAINING YELLOW URINE. MIKE PICC C/D/I/PATENT. NO S/O INFILTRATION/PHLEBITIS OBSERVED IVF INFUSING TKO. PT'S CARE WILL BE ENDORSED TO ENERGY ADVISOR RN FOR CONTINUITY OF CARE. BED IN LOW AND LOCKED POSITION. CALL LIGHT WITHIN REACH.
--- NOTE | 2018-01-15 22:00 | NUR ---
POWDER LINE REPAIRER - REC'D PT. INTUBATED & ON 3 MCG/MIN. OF LEVOPHED GTT. PT'S SBP'S ARE IN THE 90'S-LOW 100'S. NOT READY TO TITRATED YET. WILL ATTEMPT IS ABLE. LEFT C/W PACER IS 100% V-PACING. PT'S EYES ARE OPEN, BUT NOT TRACKING OR FOLLOWING ANY VERBAL COMMANDS. [place]UZ CATH TO GRAVITY W/GOOD UOP. OGT HAS GOOD PLACEMENT AUSC. W/40CC RESIDUALS. PT.IS ON 55CC OF FIBERSOURCE TF. PT.ALSO HAS BILAT. CHEST TUBES. BOTH TO 20CM WALL SX. RUE-TLC HAS ALL PORTS PATENT TO FLUSH. 0.9%NS INFUSING AT TKO. ALL PULSES PALPABLE X 4 EXT./WEAK. PT'S DAUGHTER TORSTEN WAS HERE FOR A COUPLE HRS. ALL QUESTIONS ASKED BY FAMILY WAS ANSWERED APPROPRIATELY & TO BEST OF ABILITY. SCD'S TO BLE'S.AFEBRILE. CONT. POC.
--- NOTE | 2018-01-15 22:04 | NUR ---
PT RECEIVED INTUBATED 7.0 ETT SECURED AT 23CM AT THE LIP ON 840 VENT. PT TOLERATING VENT SETTINGS. SX'D FOR SML AMT OF TINGED SECRETIONS. VENT ALARMS SET AND AUDIBLE. AMBU BAG AT BEDSIDE. VENT PLUGGED INTO RED OUTLET. WILL CONTINUE TO MONITOR. Addendum: 01/15/18 at 2204 by MICAH COLEMAN RT Amended: Links added.
[2018-01-16] VITALS (94 sets, daily range): BP systolic 80–120; BP diastolic 37–76
[2018-01-16] MEDS: IPRATROPIUM NEB FS 0.5 MG/2.5 ML AMPUL.NEB NEB SCH ×4 (00:53→19:29)
[2018-01-16] MEDS: ALBUTEROL FS 2.5 MG/0.5 ML VIAL.NEB NEB SCH ×4 (00:53→19:29)
[2018-01-16 05:08] LABS: BASOPHILS % (AUTO) 0.1 % (0.0-2.0); HEMATOCRIT 28 % (33-45); HEMOGLOBIN 8.8 g/dL (11.5-14.8); LYMPHOCYTES # (AUTO) 0.6 /CMM (0.8-4.8); LYMPHOCYTES % (AUTO) 5.1 % (20.0-44.0); MEAN CORPUSCULAR HEMOGLOBIN 28 PG (26.0-33.0); MEAN CORPUSCULAR HGB CONC 32 g/dl (31.0-36.0); MEAN CORPUSCULAR VOLUME 88 fL (82-100); MONOCYTES # (AUTO) 0.7 /CMM (0.1-1.30); MONOCYTES % (AUTO) 6.7 % (2.0-12.0); NEUTROPHILS # (AUTO) 9.6 /CMM (1.8-8.9); NEUTROPHILS % (AUTO) 88.1 % (43.0-81.0); PLATELET COUNT (AUTO) 192 /CMM (150-450); RDW COEFFICIENT OF VARIATION 33.9 (11.5-15.0); RED BLOOD CELL COUNT(AUTO) 3.15 MIL/uL (4.0-5.2); WHITE BLOOD COUNT (AUTO) 10.9 K/uL (4.3-11.0)
[2018-01-16 05:26] LABS: CALCIUM, SERUM 7.5 mg/dL (8.5-10.1); CARBON DIOXIDE 34 mmol/L (21-32); CHLORIDE 103 mmol/L (98-107); CREATININE 1.2 mg/dL (0.6-1.3); GLUCOSE 151 mg/dL (74-106); MAGNESIUM 2.2 mg/dL (1.8-2.4); POTASSIUM 4.6 mmol/L (3.5-5.1); SODIUM SERUM 141 mmol/L (136-145); UREA NITROGEN, BLOOD 35 mg/dL (7-18)
--- NOTE | 2018-01-16 06:55 | NUR ---
INVENTORY CONTROL ASSOCIATE - NO CHANGES FROM PREVIOUS ASSESSMENTS. PT. RECEIVED 2ND BEDBATH (PARTIAL) DUE TO FECAL INC. NO OUTPUT FROM RT.CHEST TUBE & ONLY 10CC FROM LEFT CHEST TUBE (SEROSANG.) PT. DID HAVE A PROBLEME WITH HIGH RESIDUALS. AT 4AM, RESIDUALS WERE 70CC & BY 6AM-RESIDUALS ARE 25CC. FEEDING WAS OFF X 2 HRS & IS NOW RESUMED AT 55CC/HR. ZYPREXA 2.5CC WAS ADM. VENT SETTINGS THE SAME. THIN,WHITE SXS NOTED. MORE ORAL THAN TRACHEAL. AFEBRILE. 12 HR. TOTAL FROM DE [place] CRUZ UOP = 420CC. AND 2 BM'S TOTAL. CONT.POC.
--- NOTE | 2018-01-16 07:33 | NUR ---
INITIAL BLOOM CONVEYOR OPERATOR NOTE RCVD PT ABLE TO OPEN EYES TO NAME, UNABLE TO FOLLOW COMMANDS AT THIS TIME. V-PACING ON TELE. INTUBATED ETT 7.0 22 AT LIP TOLERATING ORDERED VENT SETTINGS WELL. BILATERAL CHEST TUBES PRESENT DRESSINGS C/D/I. NO OUTPUT ON RIGHT, SEROUS FLUID OBSERVED ON TUBING FOR LEFT SIDE. OG-TUBE PLACEMENT VERIFIED BY AUSCULTATION/ASPIRATION. RESIDUAL OF 40ML OBTAINED. [place]Z TO GRAVITY DRAINING CLEAR, PATY COLORED URINE. MIKE PICC C/D/I/PATENT. NO S/O INFILTRATION/PHLEBITIS OBSERVED PT CONTINUES TO RECEIVE PRESSORS AT THIS TIME. WILL CONTINUE TO MONITOR PT FOR SAFETY AND COMFORT. CALL LIGHT WITHIN REACH. BED IN LOW AND LOCKED POSITION.
--- NOTE | 2018-01-16 08:13 | NUR ---
GROUND SUPPORT AGENT NOTE PER CX REPORT ETT 1 CM ABOVE SHARRI CHIANG, RT INFORMED. DR. VARGAS IN UNIT ASSESSING PT INFORMED OF ABOVE RECOMMENDED TO PULL TUBE 2 CM. SHARRI RT INFORMED WILL CONFIRM WITH DR. CARDOZO WHEN HE COMES TO SEE PT BEFORE ADJUSTING ETT. AV MENARD AWARE.
[2018-01-16] MEDS: FUROSEMIDE 20 MG/2 ML VIAL IV SCH ×2 (08:48→18:00)
[2018-01-16] MEDS: POTASSIUM CHLORIDE 20 MEQ POWDER PACKET GT SCH (08:48)
[2018-01-16] MEDS: methylPREDNISolone SOD SUCC 40 MG/ML VIAL IV SCH (08:48)
[2018-01-16] MEDS: PANTOPRAZOLE 40 MG/PACK PACK NG SCH (08:48)
[2018-01-16] MEDS: Z GUARD REMEDY 2 OZ OINT TP SCH (08:49)
[2018-01-16] MEDS: FIBERSOURCE HN 1,000 ML BOTTLE GT PRN (08:49)
[2018-01-16] MEDS ORDERED: DEXTROSE 50%-WATER 50 ML DISP.SYRIN IV PRN (09:00)
[2018-01-16 09:09] LABS: ABG BASE EXCESS 11.2 mmol/L; ABG OXYGEN SATURATION 96.4 % (92.0-98.5); ABG PCO2 48.8 mmHg (35.0-45.0); ABG PH 7.485 (7.350-7.450); ABG PO2 88.6 mmHg (75.0-100.0); AaDO2 104.2 mmHg; COHb 0.8 % (0.5-1.5); MetHb 0.4 % (0.0-1.5); O2Hb 95.2 % (94.0-97.0); PEEP,BG 0 cm H2O; SITE, ABG Left Radial; VENT MODE, BG AC 14 400 35%; VT, ABG 400 mL
--- NOTE | 2018-01-16 10:12 | NUR ---
ETT TUBE FROM 22 CM LIPLINE READJUSTED TO [address] CARDOZO ORDER PULLED BACK 1 CM. RN NOTIFIED. Addendum: 01/16/18 at 1014 by SHARRI EVERETT RT Amended: Links added.
--- NOTE | 2018-01-16 10:34 | NUR ---
BELLMAKER NOTE OG-TUBE PLACEMENT VERIFIED AFTER ETT ADJUSTMENT BY AUSCULTATION/ASPIRATION NO RESIDUAL OBTAINED. GURGLING PRESENT UPON AUSCULTATION. WILL CONTINUE TO MONITOR.
[2018-01-16] MEDS: BLOOD SUGAR DIAGNOSTIC 1 EACH STRIP IN SCH ×2 (12:37→17:27)
[2018-01-16] MEDS: INSULIN REGULAR, HUMAN 100 UNIT/ML 3 ML VIAL SQ PRN ×2 (12:37→17:28)
--- NOTE | 2018-01-16 13:45 | NUR ---
ADDENDUM DR. VARGAS SPOKE OVER THE PHONE WITH PT'S SON/DAUGHTER REGARDING PT'S CONDITION. PT'S FAMILY WOULD LIKE TO WAIT UNTIL MONDAY BEFORE MAKING A DECISION REGARDING COMFORT CARE.
--- NOTE | 2018-01-16 17:13 | NUR ---
RT END OF THE SHIFT REPORT, PT 87 Y OLD FEMALE REMAINED ORALLY INTUBATED ETT#7.0 @ 21 M VENT. T/O DAY ETT PULLED BACK TO 21CM PER DR. CARDOZO ORDER. TOLERATING VENT SETTINGS. NO DISTRESS NOTED T/O SHIFT SUX'D FOR SMALL AMT OF THICK YELLOWISH SECRETIONS. B/S BILATERALLY RALES/RHONCHI, EQUAL CHEST RISE NOTED. NO CHANGES ON VENT, ALARMS SET AND AUDIBLE. AMBU BAG AT BEDSIDE. VENT PLUGGED INTO RED OUTLET. WILL CONTINUE TO MONITOR. AND REPORT WILL PASS TO PM SHIFT. Addendum: 01/16/18 at 1717 by SHARRI EVERETT RT Amended: Links added.
[2018-01-16] MEDS: NOREPINEPHRINE 8 MG in IV D5W 500 ML IV PRN (18:09)
--- NOTE | 2018-01-16 18:38 | NUR ---
CHILD WATCH ATTENDANT NOTE PT ABLE TO OPEN EYES TO NAME, UNABLE TO FOLLOW COMMANDS AT THIS TIME. V-PACING ON TELE. OG-TUBE IN PLACE. TOLERATING TUBE FEEDING WELL. TOLERATING ORDERED VENT SETTINGS WELL. [place] CRUZ TO GRAVITY DRAINING CLEAR, PATY COLORED URINE. IV SITE C/D/I/PATENT. PT'S CARE WILL BE ENDORSED TO SIZE MAKER RN FOR CONTINUITY OF CARE. BED IN LOW AND LOCKED POSITION. CALL LIGHT WITHIN REACH.
--- NOTE | 2018-01-16 21:45 | NUR ---
PT RECEIVED INTUBATED 7.0 ETT SECURED AT 21CM AT THE LIP ON 840 VENT. PT TOLERATING VENT SETTINGS. SX'D FOR SML AMT OF THICK PALE SECRETIONS. VENT ALARMS SET AND AUDIBLE. AMBU BAG AT BEDSIDE. VENT PLUGGED INTO RED OUTLET. WILL CONTINUE TO MONITOR. Addendum: 01/16/18 at 2147 by MICAH COLEMAN RT Amended: Links added.
--- NOTE | 2018-01-16 22:00 | NUR ---
WAREHOUSE TEAM MEMBER - REC'D PT. VENTED & ON LEVOPHED GTT. AT 2 MCG/MIN. PT. HAS BILAT. CHEST TUBES-BOTH TO 20 CM WALL SX. RT. IS NOT DRAINING, BUT LEFT CT IS DRAINING SEROSANGUINEOUS DRAINAGE. HEART MONITOR SHOWS 100% V-PACING (70-80'S). SBP'S WENT TO 80'S AROUND 21:15. LEVO GTT INCREASED TO 2 MCG/MIN. & SBP'S REMAINED IN THE 80'S, SO INCREASED TO 3 MCG/MIN. PT. HAD A BM AT 20:00. PARTIAL BEDBATH WAS GIVEN AT 21:00. DE [place] CRUZ CATH TO GRAVITY W/GOOD UOP. FIBERSOURCE IS INFUSING VIA OGT AT 55 CC/HR. 20CC RESIDUALS. RUE - TL HAS ALL PORTS PATENT TO FLUSH. PT'S DAUGHTER IN LAW AT . ALL QUESTIONS ASKED TO BEST OF ABILITY. CONT. POC.
[2018-01-17] VITALS (77 sets, daily range): BP systolic 82–131; BP diastolic 32–79
[2018-01-17] MEDS: INSULIN REGULAR, HUMAN 100 UNIT/ML 3 ML VIAL SQ PRN ×4 (00:48→23:55)
[2018-01-17] MEDS: IPRATROPIUM NEB FS 0.5 MG/2.5 ML AMPUL.NEB NEB SCH ×4 (00:58→20:43)
[2018-01-17] MEDS: ALBUTEROL FS 2.5 MG/0.5 ML VIAL.NEB NEB SCH ×2 (00:58→08:02)
[2018-01-17 04:11] LABS: HEMATOCRIT 29 % (33-45); HEMOGLOBIN 9.2 g/dL (11.5-14.8); LYMPHOCYTES # (AUTO) 0.9 /CMM (0.8-4.8); LYMPHOCYTES % (AUTO) 7.7 % (20.0-44.0); MEAN CORPUSCULAR HEMOGLOBIN 28 PG (26.0-33.0); MEAN CORPUSCULAR HGB CONC 32 g/dl (31.0-36.0); MEAN CORPUSCULAR VOLUME 88 fL (82-100); MONOCYTES # (AUTO) 0.8 /CMM (0.1-1.30); MONOCYTES % (AUTO) 6.9 % (2.0-12.0); NEUTROPHILS # (AUTO) 10.3 /CMM (1.8-8.9); NEUTROPHILS % (AUTO) 85.4 % (43.0-81.0); PLATELET COUNT (AUTO) 231 /CMM (150-450); RDW COEFFICIENT OF VARIATION 34.2 (11.5-15.0); WHITE BLOOD COUNT (AUTO) 12.1 K/uL (4.3-11.0)
[2018-01-17 04:29] LABS: ALANINE AMINOTRANSFERASE 67 U/L (12-78); ALBUMIN 1.6 g/dL (3.4-5.0); ALKALINE PHOSPHATASE 123 U/L (46-116); ASPARTATE AMINOTRANSFERASE 97 U/L (15-37); BILIRUBIN,TOTAL 3.6 mg/dL (0.2-1.0); CALCIUM, SERUM 7.8 mg/dL (8.5-10.1); CARBON DIOXIDE 33 mmol/L (21-32); CHLORIDE 101 mmol/L (98-107); CREATININE 1.2 mg/dL (0.6-1.3); GLUCOSE 143 mg/dL (74-106); MAGNESIUM 2.3 mg/dL (1.8-2.4); SODIUM SERUM 140 mmol/L (136-145); UREA NITROGEN, BLOOD 40 mg/dL (7-18)
--- NOTE | 2018-01-17 06:00 | NUR ---
EVENT TECHNICIAN - PT. WAS ADM. A 2ND BEDBATH DUE TO FECAL INC. ORAL,VENT,STEF,SKIN/WOUND CARE ADM. CT DRSG CHANGES BILAT. DONE ALONG W/BUE DRSG CHANGES DONE. TOTAL RT. SIDE CHEST TUBE DRAINAGE = 100 CC. DE [place] CRUZ UOP FOR 12 HR SHIFT WAS 840 CC. LEVOPHED GTT. AT 2 MCG/MIN. SCD'S TO BLE'S. REPORT GIVEN TO CARMEN ESCALANTE. CONT. POC.
[2018-01-17] MEDS: BLOOD SUGAR DIAGNOSTIC 1 EACH STRIP IN SCH ×5 (06:38→23:55)
[2018-01-17] MEDS: PANTOPRAZOLE 40 MG/PACK PACK NG SCH (08:15)
[2018-01-17] MEDS: POTASSIUM CHLORIDE 20 MEQ POWDER PACKET GT SCH (08:15)
[2018-01-17] MEDS: Z GUARD REMEDY 2 OZ OINT TP SCH (08:15)
[2018-01-17] MEDS: FUROSEMIDE 20 MG/2 ML VIAL IV SCH ×3 (08:15→16:21)
[2018-01-17] MEDS: methylPREDNISolone SOD SUCC 40 MG/ML VIAL IV SCH (08:16)
--- NOTE | 2018-01-17 09:50 | NUR ---
RT PER DR CARDOZO PATIENT WAS RAPIDLY WEANED TO EXTUBATION AND PLACED ON NRB MASK 15L POST EXTUBATION. WILL CONT TO MONITOR PATIENT CLOSELY.
--- NOTE | 2018-01-17 09:50 | NUR ---
ICU/RN - Notes Pt extubated by RT per Dr Moreno's orders and placed on NRB mask with O2 @ 15lpm. Will continue to monitor.
[2018-01-17] MEDS ORDERED: ALBUTEROL FS 2.5 MG/0.5 ML VIAL.NEB NEB PRN (11:35)
--- NOTE | 2018-01-17 12:00 | NUR ---
ICU/RN - Notes NG tube inserted to right nare, as oral tube removed during extubation. Positive placement verified.
[2018-01-17 12:05] LABS: ABG OXYGEN SATURATION 99.1 % (92.0-98.5); ABG PCO2 56.5 mmHg (35.0-45.0); ABG PH 7.388 (7.350-7.450); ABG PO2 217.4 mmHg (75.0-100.0); AaDO2 439.1 mmHg; COHb 0.9 % (0.5-1.5); MetHb 0.7 % (0.0-1.5); O2Hb 97.5 % (94.0-97.0); SITE, ABG Left Brachial
--- NOTE | 2018-01-17 12:26 | NUR ---
RT NOTE POST ABG RESULTS FIO2 TITRATED DOWN TO NASAL CANNULA PER MD REQUEST. PATIENT WAS UNABLE TO TOLERATE NASAL CANNULA. PATIENT PLACED ON NON REBREATHER. DR CARDOZO IS AWARE.
[2018-01-17] MEDS: ACETAMINOPHEN 650 MG/20.3 ML UDC NG PRN (12:40)
[2018-01-17] MEDS: FIBERSOURCE HN 1,000 ML BOTTLE GT PRN (13:18)
--- NOTE | 2018-01-17 13:25 | NUR ---
POST ABG RESULTS PATIENT TITRATED FROM NON REBREATHER TO SIMPLE MASK. PATIENT IN NO DISTRESS AT THIS TIME. BORIS ANNA.
[2018-01-17 13:28] LABS: ABG BASE EXCESS 5.2 mmol/L; ABG PCO2 52.3 mmHg (35.0-45.0); ABG PH 7.391 (7.350-7.450); ABG PO2 283.3 mmHg (75.0-100.0); AaDO2 377.4 mmHg; COHb 0.4 % (0.5-1.5); MetHb 1.3 % (0.0-1.5); O2Hb 97.3 % (94.0-97.0); SITE, ABG Left Brachial
[2018-01-17] MEDS: NOREPINEPHRINE 8 MG in IV D5W 500 ML IV PRN (16:59)
--- NOTE | 2018-01-17 17:56 | NUR ---
ICU/RN - Notes Pt tolerating nasal cannula @ 4lpm at this time. No acute distress.
--- NOTE | 2018-01-17 21:00 | NUR ---
EDUCATION INTERN - REC'D PT. SITTING UP ON O2/4L/NC, S/P EXTUBATION TODAY. RHONCHI AUSC. TO ALL LOBES. O2 SATS ARE >91%. PT'S DAUGHTER AT BEDSIDE. PT. CAN FOLLOW VERBAL COMMANDS W/DAUGHTER. PT.IS TRACKING WELL. PT. REMAINS ON LEVOPHED GTT. AT 5 MCG/MIN. SBP'S ARE 90'S TO LOW 100'S. HEART MONITOR SHOWS 100% V-PACING IN THE 70-80'S. RT.ISSA NGT HAS GOOD PLACEMENT W/20 CC RESIDUALS. FIBERSOURCE INFUSING AT 55CC/HR. DE [place] CRUZ CATH TO GRAVITY W/GOOD UOP. AFEBRILE. ALL PULSES PALPABLE X 4 EXT. WEAK TO BLE'S. RUE PICC LINE HAS 0.9%NS AT TKO & LEVOPHED GTT. CONT. POC.
[2018-01-18] VITALS (69 sets, daily range): BP systolic 79–145; BP diastolic 26–77
[2018-01-18] MEDS: IPRATROPIUM NEB FS 0.5 MG/2.5 ML AMPUL.NEB NEB SCH ×4 (01:56→19:44)
[2018-01-18 04:58] LABS: BASOPHILS % (AUTO) 0.2 % (0.0-2.0); EOSINOPHILS # (AUTO) 0.1 /CMM (0.0-0.7); EOSINOPHILS % (AUTO) 0.8 % (0.0-6.0); HEMATOCRIT 29 % (33-45); HEMOGLOBIN 8.9 g/dL (11.5-14.8); LYMPHOCYTES # (AUTO) 0.8 /CMM (0.8-4.8); LYMPHOCYTES % (AUTO) 6.7 % (20.0-44.0); MEAN CORPUSCULAR HEMOGLOBIN 28 PG (26.0-33.0); MEAN CORPUSCULAR HGB CONC 31 g/dl (31.0-36.0); MEAN CORPUSCULAR VOLUME 89 fL (82-100); MONOCYTES # (AUTO) 0.7 /CMM (0.1-1.30); MONOCYTES % (AUTO) 6.1 % (2.0-12.0); NEUTROPHILS # (AUTO) 10.1 /CMM (1.8-8.9); NEUTROPHILS % (AUTO) 86.2 % (43.0-81.0); PLATELET COUNT (AUTO) 200 /CMM (150-450); RDW COEFFICIENT OF VARIATION 32.7 (11.5-15.0); RED BLOOD CELL COUNT(AUTO) 3.22 MIL/uL (4.0-5.2); WHITE BLOOD COUNT (AUTO) 11.8 K/uL (4.3-11.0)
[2018-01-18 05:17] LABS: CALCIUM, SERUM 7.7 mg/dL (8.5-10.1); CARBON DIOXIDE 36 mmol/L (21-32); CHLORIDE 103 mmol/L (98-107); CREATININE 1.2 mg/dL (0.6-1.3); GLUCOSE 106 mg/dL (74-106); POTASSIUM 4.2 mmol/L (3.5-5.1); SODIUM SERUM 142 mmol/L (136-145); UREA NITROGEN, BLOOD 39 mg/dL (7-18)
--- NOTE | 2018-01-18 06:00 | NUR ---
SHIFT SUPERVISOR MELTING - PT. RECEIVED A COMPLETE BEDBATH W/EXTENSIVE DRSG CHANGES TO BILAT.FA'S, BILAT.CHEST TUBE SITES, BACK AND SACRAL AREAS. PT.IS NOW ON LEVOPHED AT 2 MCG/MIN. O2 SATS ARE LABILE. PT.IS STILL ON O2/4L/NC. + HOARSE N/P COUGH. PT.IS RESTLESS. LEFT CT PUT OUT ONLY 30 CC. DE [place] CRUZ CATH PUT OUT 885 CC/12 HR. SHIFT. 6AM BS-#147. PT.COVERED WITH 2 UNITS OF INSULIN PER S/S. WILL ENDORSE REPORT TO SHITAL ESCALANTE. CONT. POC.
[2018-01-18] MEDS: INSULIN REGULAR, HUMAN 100 UNIT/ML 3 ML VIAL SQ PRN (06:13)
[2018-01-18] MEDS: BLOOD SUGAR DIAGNOSTIC 1 EACH STRIP IN SCH (06:15)
--- NOTE | 2018-01-18 07:47 | NUR ---
INITIAL BIOSTATISTICS TEACHER NOTE RCVD PT EXTUBATED, ABLE TO OPEN EYES TO NAME, UNABLE TO FOLLOW COMMANDS. V-PACING ON TELE. TOLERATING O2 VIA NC. BILATERAL CHEST TUBES IN PLACE PER CX NEW PNEUMOTHORAX FOUND ON RIGHT SIDE. RIGHT NG-TUBE PLACEMENT VERIFIED BY AUSCULTATION/ASPIRATION. GURGLING UPON AUSCULTATION. ABOUT 5ML RESIDUAL OBTAINED UPON ASPIRATION. [place] IN PLACE DRAINING YELLOW URINE. MIKE PICC C/D/I/PATENT. NO S/O INFILTRATION/PHLEBITIS OBSERVED. PT ON PRESSORS KEEPING SBP >90. WILL CONTINUE TO MONITOR PT FOR SAFETY AND COMFORT. CALL LIGHT WITHIN REACH. BED IN LOW AND LOCKED POSITION.
[2018-01-18 09:15] LABS: ABG BASE EXCESS 7.9 mmol/L; ABG OXYGEN SATURATION 89.4 % (92.0-98.5); ABG PCO2 52.7 mmHg (35.0-45.0); ABG PH 7.421 (7.350-7.450); ABG PO2 60.4 mmHg (75.0-100.0); AaDO2 135.2 mmHg; COHb 1.3 % (0.5-1.5); MetHb 0.7 % (0.0-1.5); O2Hb 87.6 % (94.0-97.0); SITE, ABG Right Radial; VENT MODE, BG 4LNC
--- NOTE | 2018-01-18 09:27 | NUR ---
RESEARCH NURSE PRACTITIONER NOTE PT OBSERVED MOUTH BREATHING SATURATION DECREASING, SIMPLE MASK STARTED ON 6L HUMIDIFIED O2. RT INFORMED.
[2018-01-18] MEDS: ALBUTEROL FS 2.5 MG/0.5 ML VIAL.NEB NEB SCH ×3 (09:30→19:44)
[2018-01-18] MEDS: PANTOPRAZOLE 40 MG/PACK PACK NG SCH (09:44)
[2018-01-18] MEDS: POTASSIUM CHLORIDE 20 MEQ POWDER PACKET GT SCH (09:44)
[2018-01-18] MEDS: FUROSEMIDE 20 MG/2 ML VIAL IV SCH ×2 (09:44→16:08)
[2018-01-18] MEDS: Z GUARD REMEDY 2 OZ OINT TP SCH (09:45)
[2018-01-18] MEDS: FIBERSOURCE HN 1,000 ML BOTTLE GT PRN (09:47)
--- NOTE | 2018-01-18 11:29 | NUR ---
VENEER LATHE OPERATOR NOTE PT UNABLE TO CLEAR SECRETIONS, SOUNDS CONGESTED, VANUSH, RT INFORMED TO CONSIDER DEEP SUCTIONING. GREEN BLOOD TINGED SECRETIONS REMOVED.
[2018-01-18] MEDS: IV NS 0.9% 250 ML IV PRN (18:06)
--- NOTE | 2018-01-18 18:57 | NUR ---
DUMPER MOLD CLEANER NOTE PT REMAINS STABLE, MORE AWAKE AT THIS TIME, V-PACING ON TELE. TOLERATING O2 VIA SIMPLE MASK. TIGHT NG-TUBE PLACEMENT VERIFIED BY AUSCULTATION/ASPIRATION. NO RESIDUAL OBTAINED. BILATERAL CHEST TUBE RIGHT DRAINING SEROUS FLUID 14ML AND LEFT SIDE SEROUS FLUID 10 ML. DE [place] CRUZ TO GRAVITY DRAINING YELLOW URINE. MIKE PICC C/D/I/PATENT. NO S/O INFILTRATION/PHLEBITIS OBSERVED. IVF INFUSING TKO. PT'S CARE WILL BE ENDORSED TO OUTBOUND SALES REPRESENTATIVE RN FOR CONTINUITY OF CARE. BED IN LOW AND LOCKED POSITION. CALL LIGHT WITHIN REACH. PT'S DAUGHTER, TORSTEN AT BEDSIDE UPDATED ON PT'S CONDITION.
--- NOTE | 2018-01-18 19:00 | NUR ---
ICU/RN RECEIVED PT W/ EYES OPEN,TRACKS AT TIMES,DOES NOT FOLLOW COMMANDS.STILL W/ BILATERAL CHEST TUBES ONE ON RT AND ONE ON LEFT.CT DRESSING DRY AND INTACT.NO AIR LEAK NOTED.SAT 99% ON LITERS VIA SIMPLE MASK.TOLERATING TUBE FEEDING W/ MINIMAL RESIDUAL.
[2018-01-19] VITALS (34 sets, daily range): BP systolic 78–123; BP diastolic 28–68
[2018-01-19] MEDS: ALBUTEROL FS 2.5 MG/0.5 ML VIAL.NEB NEB SCH ×4 (01:51→19:22)
[2018-01-19] MEDS: IPRATROPIUM NEB FS 0.5 MG/2.5 ML AMPUL.NEB NEB SCH ×4 (01:51→19:22)
--- NOTE | 2018-01-19 02:00 | NUR ---
ICU/RN COMPLETE BED BATH DONE AND CT DRESSING CHANGED.
[2018-01-19 05:23] LABS: EOSINOPHILS # (AUTO) 0.1 /CMM (0.0-0.7); EOSINOPHILS % (AUTO) 0.9 % (0.0-6.0); HEMATOCRIT 28 % (33-45); HEMOGLOBIN 8.9 g/dL (11.5-14.8); LYMPHOCYTES # (AUTO) 1.3 /CMM (0.8-4.8); LYMPHOCYTES % (AUTO) 11.1 % (20.0-44.0); MEAN CORPUSCULAR HEMOGLOBIN 28 PG (26.0-33.0); MEAN CORPUSCULAR HGB CONC 32 g/dl (31.0-36.0); MEAN CORPUSCULAR VOLUME 90 fL (82-100); MONOCYTES # (AUTO) 0.5 /CMM (0.1-1.30); MONOCYTES % (AUTO) 4.2 % (2.0-12.0); NEUTROPHILS # (AUTO) 9.7 /CMM (1.8-8.9); NEUTROPHILS % (AUTO) 83.8 % (43.0-81.0); PLATELET COUNT (AUTO) 195 /CMM (150-450); RDW COEFFICIENT OF VARIATION 33.2 (11.5-15.0); RED BLOOD CELL COUNT(AUTO) 3.14 MIL/uL (4.0-5.2); WHITE BLOOD COUNT (AUTO) 11.6 K/uL (4.3-11.0)
[2018-01-19 05:35] LABS: CALCIUM, SERUM 7.7 mg/dL (8.5-10.1); CARBON DIOXIDE 38 mmol/L (21-32); CHLORIDE 103 mmol/L (98-107); GLUCOSE 140 mg/dL (74-106); MAGNESIUM 2.2 mg/dL (1.8-2.4); POTASSIUM 4.5 mmol/L (3.5-5.1); SODIUM SERUM 142 mmol/L (136-145); UREA NITROGEN, BLOOD 34 mg/dL (7-18)
--- NOTE | 2018-01-19 07:15 | NUR ---
ICU/RN LT AND RT. CHEST TUBE TO H2O SEAL.SEROUS FLUID LEAKING AROUND CT SITE DRESSING.
--- NOTE | 2018-01-19 07:30 | NUR ---
CHECKING CLERK INITIAL NOTES RECEIVED PATIENT IN BED, AWAKE ABLE TO FOLLOW WITH EYES, NONVERBAL AT THIS TIME, UNABLE TO COMMUNICATE NEEDS, ON 6L SIMPLE FACE MASK, TOLERATING WELL NO DISTRESS NOTED, BILATERAL CHEST TUBE TO SUCTION WHEN RECEIVED, SUCTION DC AT THIS TIME ON WATER SEAL WITH FOLLOW-UP CHEST XRAY IN AN HOUR, SR WITH V-PACING ON MONITOR, MIKE PICC LINE CLEAN AND PATENT, NGT WITH FIBERSOURCE AT 55 ML/HR, HOB ELEVATED, BED IN LOW AND LOCKED POSITION WILL CONTINUE TO MONITOR
--- NOTE | 2018-01-19 08:30 | NUR ---
PATIENT SERVICE REPRESENTATIVE NOTES PATIENT SEEN BY DR VARGAS, AFTER XRAY OK TO CLAMP CHEST TUBE IF NO PNEUMOTHORAX.
[2018-01-19] MEDS: PANTOPRAZOLE 40 MG/PACK PACK NG SCH (08:44)
[2018-01-19] MEDS: FUROSEMIDE 20 MG/2 ML VIAL IV SCH ×2 (08:44→17:00)
[2018-01-19] MEDS: POTASSIUM CHLORIDE 20 MEQ POWDER PACKET GT SCH (08:44)
[2018-01-19] MEDS: Z GUARD REMEDY 2 OZ OINT TP SCH (08:45)
--- NOTE | 2018-01-19 09:23 | NUR ---
EDUCATION COURSES SALES REPRESENTATIVE NOTES PATIENT CHEST XRAY INDICATES NO PNEUMOTHORAX CHEST TUBES CLAMPED BILATERALLY.
[2018-01-19] MEDS: PIPERACILLIN /TAZOBACTAM 3.375 G in IV D5W 50 ML IV SCH ×2 (12:07→17:18)
--- NOTE | 2018-01-19 15:19 | NUR ---
SILVERING DEPARTMENT SUPERVISOR NOTES PM CARE PROVIDED. BOTH CHEST TUBE DRESSING SOAKING WET, WHEN DRESSING REMOVED RIGHT CHEST TUBE DISLODGED, NOTIFIED COMPUTER SPECIALIST, AND DR KATE, STAT CHEST XRAY ORDERED. PRESSURE DRESSING REAPPLIED. SKIN TEARS AND BRUISES NOTED AROUND CHEST TUBE SITES.
[2018-01-19] MEDS: ACETAMINOPHEN 650 MG/20.3 ML UDC NG PRN (15:27)
--- NOTE | 2018-01-19 16:04 | NUR ---
SKIVER OPERATOR NOTES PATIENT CHEST XRAY REVIEWED BY DR KATE, NO NEW ORDERS.
--- NOTE | 2018-01-19 18:50 | NUR ---
BAT PERSON NOTES PATIENT RESTING IN BED, SIMPLE MASK 6L, SATURATING WELL, BLOOD PRESSURE 103/68, BP UP AND DOWN, WILL ENDORSE TO SENIOR STAFF SPECIALIZED EMPLOYMENT TO MONITOR.
--- NOTE | 2018-01-19 19:30 | NUR ---
RESUME WRITER: RECEIVED PT ALERT AND AWAKE, EYES TRACK, NON-VERBAL AND UNABLE TO FOLLOW COMMANDS. ON 6L 02 VIA FACE MASK WT 02 SAT 96% AND ABOVE. OCCASIONAL NON-PRODUCTIVE COUGHING NOTED. NO EVIDENCE OF DISCOMFORT. AFEBRILE. 100% V-PACING ON WHITE SUGAR PAN TANK OPERATOR. RT. NGT, PLACEMENT VERIFIED VIA AUSCULTATION AND RUNNING FIBERSOURCE HN AT 55ML/HR WT NO RESIDUAL. F/C PATENT AND INTACT DRAINING CLEAR PATY URINE TO GRAVITY. MIKE PICC TO TKO WT NO S/S OF COMPLICATIONS. LEFT CHEST TUBE REMAINED CLAMPED AT THIS TIME. HOB AT 45 DEGREES. ASPIRATION PRECAUTION NOTED. WILL CONTINUE TO MONITOR.
--- NOTE | 2018-01-19 19:45 | NUR ---
RELATIONS LIAISON: PLACED ON 4L 02 VIA NC. NO ACUTE DISTRESS. WILL CONTINUE TO MONITOR.
[2018-01-19] MEDS: FIBERSOURCE HN 1,000 ML BOTTLE GT PRN (19:46)
--- NOTE | 2018-01-19 21:30 | NUR ---
TAPER AND FLOATER: DAUGHTER AT BEDSIDE. PT MORE WIDE AWAKE AND FOLLOW SIMPLE COMMANDS WT CUING.
--- NOTE | 2018-01-19 23:10 | NUR ---
AIRCRAFT AIR CONDITIONING MECHANIC: PT EYES CLOSED WT NO LABORED BREATHING. NOTED DESATURATION, STIMULATED AND ABLE TO WAKE UP. 02 SAT BACK TO 90% AND ABOVE. WILL CONTINUE TO MONITOR.
[2018-01-20] VITALS (24 sets, daily range): BP systolic 90–137; BP diastolic 22–80
[2018-01-20] MEDS: PIPERACILLIN /TAZOBACTAM 3.375 G in IV D5W 50 ML IV SCH ×5 (00:06→23:23)
[2018-01-20] MEDS: IV NS 0.9% 250 ML IV PRN ×2 (00:22→21:12)
--- NOTE | 2018-01-20 00:45 | NUR ---
SHOW CARD LETTERER: STILL ON 4L 02 VIA NC WT O2 SAT 96% AND ABOVE. WILL CONTINUE TO MONITOR.
[2018-01-20] MEDS: IPRATROPIUM NEB FS 0.5 MG/2.5 ML AMPUL.NEB NEB SCH ×4 (00:54→20:25)
[2018-01-20] MEDS: ALBUTEROL FS 2.5 MG/0.5 ML VIAL.NEB NEB SCH ×4 (00:54→20:25)
--- NOTE | 2018-01-20 04:30 | NUR ---
ICU PT: PT GIVEN BED BATH AND VERBALIZED "I'M COLD". FOLLOWS COMMANDS AT TIMES. VS WITHIN HER BASELINE.
[2018-01-20 05:42] LABS: CALCIUM, SERUM 7.8 mg/dL (8.5-10.1); CARBON DIOXIDE 38 mmol/L (21-32); CHLORIDE 106 mmol/L (98-107); CREATININE 0.9 mg/dL (0.6-1.3); GLUCOSE 116 mg/dL (74-106); POTASSIUM 4.5 mmol/L (3.5-5.1); SODIUM SERUM 144 mmol/L (136-145); UREA NITROGEN, BLOOD 30 mg/dL (7-18)
--- NOTE | 2018-01-20 06:45 | NUR ---
DATA ENTRY CLERK: STILL ON 4L 02 VIA NC WT NO ACUTE DISTRESS. WT OCCASIONAL COUGHING EPISODES. ORALLY SUCTIONED WT SMALL AMT. OF GREEN THICK SECRETIONS. HOB AT 45 DEGREES AT ALL TIMES.
--- NOTE | 2018-01-20 07:45 | NUR ---
ICU/RN - Initial Notes Received pt awake and alert, does not follow commands, aphasic. No acute respiratory distress. On O2 @ 4lpm via nasal cannula. No s/s of pain or discomfort. PICC line patent and intact. Left chest tube clamped. De León catheter intact draining urine to gravity. Safety and comfort measures in place. Will continue to monitor pt closely.
[2018-01-20] MEDS: PANTOPRAZOLE 40 MG/PACK PACK NG SCH (08:13)
[2018-01-20] MEDS: POTASSIUM CHLORIDE 20 MEQ POWDER PACKET GT SCH (08:13)
[2018-01-20] MEDS: FUROSEMIDE 20 MG/2 ML VIAL IV SCH ×2 (08:13→16:18)
[2018-01-20] MEDS: Z GUARD REMEDY 2 OZ OINT TP SCH (08:14)
[2018-01-20 08:54] LABS: ABG BASE EXCESS 15.1 mmol/L; ABG OXYGEN SATURATION 92.6 % (92.0-98.5); ABG PCO2 58.5 mmHg (35.0-45.0); ABG PH 7.463 (7.350-7.450); ABG PO2 66.5 mmHg (75.0-100.0); AaDO2 122.3 mmHg; MetHb 0.6 % (0.0-1.5); O2Hb 91.1 % (94.0-97.0); SITE, ABG Left Radial; VENT MODE, BG Nasal Cannula
--- NOTE | 2018-01-20 09:41 | NUR ---
ICU/RN - Notes Per CXR left chest tube out of pleural cavity. Dr Greene at bedside for removal of clamped left chest tube. Site sealed with Xeroform dressing with pressure adhesive tape. Addendum: 01/20/18 at 0944 by BRANDY WINTER RN No post CXR needed per .
[2018-01-20] MEDS: ACETAMINOPHEN 650 MG/20.3 ML UDC NG PRN ×2 (10:31→23:23)
--- NOTE | 2018-01-20 10:31 | NUR ---
ICU/RN - Notes Pt appears to be in pain, squirming around in bed. Medicated with Tylenol 650 mg PO as ordered. Will continue to monitor.
--- NOTE | 2018-01-20 13:30 | NUR ---
ICU/RN - Notes Pt's daughter at bedside. Updates provided regarding plan of care.
--- NOTE | 2018-01-20 19:30 | NUR ---
ELECTRICAL MANAGER: RECEIVED PT ALERT TO SELF. UNABLE TO FOLLOW SIMPLE COMMANDS. RESTLESSNESS NOTED. REPOSITIONED. ON 4L 02 VIA NC AND NOTED WT HIGH RR AND 02 SAT 90% IN GOOD WAVEFORM. INCREASED O2 AT 6L NC WT BUBBLE HUMIDIFIER WT GOOD EFFECT (02 SAT 96% AND ABOVE WT NON-LABORED BREATHING). RT. NGT RUNNING FIBERSOURCE HN AT 55ML/HR WT 10CC RESIDUAL. MIKE PICC TKO WT NO S/S OF COMPLICATIONS. F/C PATENT AND INTACT DRAINING CLEAR PATY URINE TO GRAVITY. HOB AT 45 DEGREES. SAFETY/ASPIRATION PRECAUTION NOTED.
[2018-01-20] MEDS: FIBERSOURCE HN 1,000 ML BOTTLE GT PRN (21:16)
--- NOTE | 2018-01-20 21:50 | NUR ---
OXYGEN TANK FILLER: PT PULLED OUT NGT. REMAINS RESTLESS, TRYING TO REACH FOR IV TUBINGS. UNABLE TO PERFORM PT TEACHING/EDUCATION DUE TO IMPAIRED COGNITION. CHARGE NURSE ED OBTAINED MD ORDER FOR BILAT. SOFT WRIST RESTRAINTS. NEW RT. NGT PLACED, WELL TOLERATED AND VERIFIED PLACEMENT WT PRIMARY NURSE AND CHARGE NURSE. SAFETY PRECAUTION NOTED.
[2018-01-21] VITALS (28 sets, daily range): BP systolic 86–186; BP diastolic 34–122
--- NOTE | 2018-01-21 00:30 | NUR ---
BIOLOGICAL SCIENCES INSTRUCTOR: PT REMAINS RESTLESS WT FACIAL GRIMACE AND OCCASIONAL MOANS EVEN AFTER GIVEN TYLENOL. REPOSITIONED FOR COMFORT. BILAT. SOFT WRIST RESTRAINTS IN PLACE FOR EPISODES OF TRYING TO PULL TUBINGS. CIRCULATION AND SKIN WNL. WILL CONTINUE TO MONITOR.
[2018-01-21] MEDS: FUROSEMIDE 20 MG/2 ML VIAL IV SCH ×3 (00:42→16:27)
[2018-01-21] MEDS: ALBUTEROL FS 2.5 MG/0.5 ML VIAL.NEB NEB SCH ×4 (01:44→19:44)
[2018-01-21] MEDS: IPRATROPIUM NEB FS 0.5 MG/2.5 ML AMPUL.NEB NEB SCH ×4 (01:44→19:44)
[2018-01-21 04:48] LABS: CALCIUM, SERUM 8.1 mg/dL (8.5-10.1); CARBON DIOXIDE 37 mmol/L (21-32); CHLORIDE 105 mmol/L (98-107); CREATININE 1.1 mg/dL (0.6-1.3); GLUCOSE 149 mg/dL (74-106); POTASSIUM 4.7 mmol/L (3.5-5.1); SODIUM SERUM 146 mmol/L (136-145); UREA NITROGEN, BLOOD 32 mg/dL (7-18)
[2018-01-21] MEDS: PIPERACILLIN /TAZOBACTAM 3.375 G in IV D5W 50 ML IV SCH ×4 (06:25→23:24)
--- NOTE | 2018-01-21 06:50 | NUR ---
SOUND ASSISTANT: STILL NOTED WT RESTLESSNESS AND TRYING TO PULL TUBINGS. BILAT. SOFT WRIST RESTRAINTS IN PLACE WT CIRCULATION AND SKIN WNL. STILL ON 6L 02 VIA NC WT 02 SAT 96% AND ABOVE. ALL NEEDS MET. SAFETY PRECAUTION NOTED AT ALL TIMES.
[2018-01-21] MEDS: ACETAMINOPHEN 650 MG/20.3 ML UDC NG PRN (07:33)
[2018-01-21] MEDS: POTASSIUM CHLORIDE 20 MEQ POWDER PACKET GT SCH (08:08)
[2018-01-21] MEDS: Z GUARD REMEDY 2 OZ OINT TP SCH (08:08)
[2018-01-21] MEDS: PANTOPRAZOLE 40 MG/PACK PACK NG SCH (08:08)
[2018-01-21 08:25] LABS: ABG OXYGEN SATURATION 96.2 % (92.0-98.5); ABG PCO2 53.2 mmHg (35.0-45.0); ABG PH 7.485 (7.350-7.450); ABG PO2 87.4 mmHg (75.0-100.0); AaDO2 165.7 mmHg; COHb 1.1 % (0.5-1.5); MetHb 0.4 % (0.0-1.5); O2Hb 94.8 % (94.0-97.0); SITE, ABG Left Brachial; VENT MODE, BG NASAL CANNULA
--- NOTE | 2018-01-21 09:23 | NUR ---
ICU/RN - Notes Pt agitated and restless, squirming around and kicking in bed, attempting to pull out equipment. Bilateral mittens placed instead of soft wrist restraints. Vital signs stable with O2 saturation 100% on 6lpm of O2. Tylenol administered in attempt to treat for pain, as pt manifests with facial grimacing and moaning, however ineffective. Will notify MD of pt's continued restlessness.
[2018-01-21] MEDS ORDERED: OLANZAPINE 2.5 MG TABLET PO SCH (10:30)
--- NOTE | 2018-01-21 12:45 | NUR ---
ICU/RN - Notes Pt appears to be resting at this time. Daughter Raya at bedside.
--- NOTE | 2018-01-21 18:25 | NUR ---
ICU/RN - Notes Pt still intermittently agitated and restless, then falls asleep intermittently. Daughter Raya at bedside.
--- NOTE | 2018-01-21 18:50 | NUR ---
ICU/RN - Notes Dr Greene made aware of pt's continuous agitation. Received new orders for Zyprexa BID, and Zyprexa PRN. Will carry out.
[2018-01-21] MEDS: OLANZAPINE 2.5 MG TABLET NG SCH (18:55)
--- NOTE | 2018-01-21 20:27 | NUR ---
received pt from day shift, alert, demented, does not follows commands, V pace, on 6L 02 sat well, lungs congested, some edema, NG to feeding tolerates well, mittens on, v/s stable, no pain, pt turned and repositioned.
--- NOTE | 2018-01-21 20:31 | NUR ---
patients SBP 165-175, Dr Greene called no orders received.
[2018-01-21] MEDS ORDERED: OLANZAPINE 2.5 MG TABLET NG PRN (21:00)
[2018-01-21 23:03] LABS: ABG BASE EXCESS 11.1 mmol/L; ABG OXYGEN SATURATION 98.8 % (92.0-98.5); ABG PCO2 70.7 mmHg (35.0-45.0); ABG PH 7.355 (7.350-7.450); AaDO2 288.2 mmHg; COHb 0.8 % (0.5-1.5); MetHb 0.6 % (0.0-1.5); O2Hb 97.4 % (94.0-97.0); SITE, ABG Right Radial; VENT MODE, BG 10L NRB
[2018-01-22] VITALS (34 sets, daily range): BP systolic 90–145; BP diastolic 39–91
--- NOTE | 2018-01-22 | NUR ---
pt is resting in the bed, v/s stable, no pain, on simple mask at 6L, pt turned and repositioned q2hrs.
[2018-01-22] MEDS: ALBUTEROL FS 2.5 MG/0.5 ML VIAL.NEB NEB SCH ×4 (02:07→19:56)
[2018-01-22] MEDS: IPRATROPIUM NEB FS 0.5 MG/2.5 ML AMPUL.NEB NEB SCH ×4 (02:07→19:56)
--- NOTE | 2018-01-22 04:05 | NUR ---
pt is resting in the bed, no acute distress overnight, alert, confused, does not follow commands, V pacing, on simple mask at 6L, tolerates feeding, v/s stable, no pain, pt cleaned, changed and repositioned q2hrs.
[2018-01-22 04:59] LABS: CARBON DIOXIDE 38 mmol/L (21-32); CHLORIDE 105 mmol/L (98-107); CREATININE 1.2 mg/dL (0.6-1.3); GLUCOSE 111 mg/dL (74-106); MAGNESIUM 2.5 mg/dL (1.8-2.4); POTASSIUM 4.2 mmol/L (3.5-5.1); SODIUM SERUM 148 mmol/L (136-145); UREA NITROGEN, BLOOD 31 mg/dL (7-18)
[2018-01-22] MEDS: PIPERACILLIN /TAZOBACTAM 3.375 G in IV D5W 50 ML IV SCH (05:02)
--- NOTE | 2018-01-22 07:35 | NUR ---
ICU/RN: Pt received on simple mask at 6L/min, audible wheezing noted upper lobes. RT at bedside, HOB elevated, administered breathing treatments. Pt restless and agitated, kicking pillows off bed, bilat soft mittens in place, pt attempts to remove lines. NGT auscultated + placement, 20cc gastric residual noted. FC draining peyman urine with sediments to gravity. Will cont to monitor pt.
--- NOTE | 2018-01-22 08:00 | NUR ---
ICU/RN: Pt off breathing tx with improved oxygenation at 100%. Pt noted with difficulty coughing out secretions, deep suctioning performed by RT, copious amount of extremely thick white secretions requiring lavage suctioned out. Mucoid plug noted. Placed back on simple mask at 6L/min with O2 sat 100%. Will cont to monitor pt.
[2018-01-22] MEDS: Z GUARD REMEDY 2 OZ OINT TP SCH (08:39)
[2018-01-22] MEDS: FUROSEMIDE 20 MG/2 ML VIAL IV SCH ×2 (08:39→16:45)
[2018-01-22] MEDS: PANTOPRAZOLE 40 MG/PACK PACK NG SCH (08:39)
[2018-01-22] MEDS: OLANZAPINE 2.5 MG TABLET NG SCH ×2 (08:39→21:06)
[2018-01-22] MEDS: POTASSIUM CHLORIDE 20 MEQ POWDER PACKET GT SCH (08:39)
[2018-01-22] MEDS: FIBERSOURCE HN 1,000 ML BOTTLE GT PRN (08:40)
--- NOTE | 2018-01-22 08:45 | NUR ---
ICU/RN: Dr Mares at bedside; updated on pt status, thick white secretions from deep suctioning, periods of desaturation overnight requring increased O2 requirements from SM to NC. New orders noted and carried out.
[2018-01-22] MEDS ORDERED: FUROSEMIDE 40 MG/4 ML VIAL IV ONE (09:30)
[2018-01-22] MEDS: ACETYLCYSTEINE 10% SOLN 400 MG/4 ML VIAL NEB SCH ×2 (10:00→19:30)
[2018-01-22 10:16] LABS: BASOPHILS % (AUTO) 0.2 % (0.0-2.0); EOSINOPHILS # (AUTO) 0.1 /CMM (0.0-0.7); EOSINOPHILS % (AUTO) 1.4 % (0.0-6.0); HEMATOCRIT 26 % (33-45); LYMPHOCYTES # (AUTO) 1.3 /CMM (0.8-4.8); LYMPHOCYTES % (AUTO) 14.1 % (20.0-44.0); MEAN CORPUSCULAR HEMOGLOBIN 28 PG (26.0-33.0); MEAN CORPUSCULAR HGB CONC 30 g/dl (31.0-36.0); MEAN CORPUSCULAR VOLUME 91 fL (82-100); MONOCYTES # (AUTO) 0.6 /CMM (0.1-1.30); MONOCYTES % (AUTO) 6.3 % (2.0-12.0); PLATELET COUNT (AUTO) 219 /CMM (150-450); RDW COEFFICIENT OF VARIATION 33.1 (11.5-15.0); RED BLOOD CELL COUNT(AUTO) 2.89 MIL/uL (4.0-5.2)
[2018-01-22] MEDS: PIPERACILLIN /TAZOBACTAM 2.25 G in IV NS 0.9% 50 ML IV SCH ×2 (12:56→17:01)
--- NOTE | 2018-01-22 15:00 | NUR ---
ICU/RN: Bed bath and wound care rendered, pt tolerated well. Pt still unable to follow commands but responds to name. Restless. Requires restraints for safety, attempts to pull lines and remove O2 mask.
[2018-01-22] MEDS: ACETAMINOPHEN 650 MG/20.3 ML UDC NG PRN (17:43)
--- NOTE | 2018-01-22 17:45 | NUR ---
ICU/RN: Pt deep suctioned, thick white secretions noted. Administered tylenol PRN for facial grimacing.
--- NOTE | 2018-01-22 22:15 | NUR ---
GROCERY SPECIALIST - REC'D PT. W/DAUGHTER AT BS. PT.IS IN BILAT.SOFT MITTEN RESTRAINTS PER SAFETY PROTOCOL. ZYPREXA ONE TAB VIA RT.ISSA ROJAST ADM. FOR RESTLESSNESS/ANXIETY. HEART MONITOR SHOWS VPACING W/SBP'S WNL. PT.HAS RHONCHI & RALES W/OCC. WHEEZING INTERMITTENTLY. PT. REMAINS ON SIMPLE MASK AT 02/6L. O2 SATS ARE AT 100%. SCD'S TO BLE'S INTACT. AFEBRILE. RUE PICC LINE HAS 0.9%NS INFUSING AT TKO W/IVPB'S. [place] CATH TO GRAVITY W/GOOD UOP. RT.ISSA ROJAST HAS TF OF FIBERSOURCE AT 55CC/HR.VIA PUMP. VERY LITTLE RESIDUALS NOTED. CONT. POC.
[2018-01-23] VITALS (38 sets, daily range): BP systolic 93–194; BP diastolic 37–119
[2018-01-23] MEDS: PIPERACILLIN /TAZOBACTAM 2.25 G in IV NS 0.9% 50 ML IV SCH ×4 (00:37→17:25)
[2018-01-23] MEDS: ALBUTEROL FS 2.5 MG/0.5 ML VIAL.NEB NEB SCH ×4 (02:25→20:14)
[2018-01-23] MEDS: IPRATROPIUM NEB FS 0.5 MG/2.5 ML AMPUL.NEB NEB SCH ×4 (02:25→20:14)
[2018-01-23 04:47] LABS: BASOPHILS % (AUTO) 0.1 % (0.0-2.0); EOSINOPHILS # (AUTO) 0.1 /CMM (0.0-0.7); HEMATOCRIT 28 % (33-45); HEMOGLOBIN 8.5 g/dL (11.5-14.8); LYMPHOCYTES # (AUTO) 1.4 /CMM (0.8-4.8); LYMPHOCYTES % (AUTO) 13.7 % (20.0-44.0); MEAN CORPUSCULAR HEMOGLOBIN 28 PG (26.0-33.0); MEAN CORPUSCULAR HGB CONC 31 g/dl (31.0-36.0); MEAN CORPUSCULAR VOLUME 92 fL (82-100); MONOCYTES # (AUTO) 0.8 /CMM (0.1-1.30); MONOCYTES % (AUTO) 7.5 % (2.0-12.0); NEUTROPHILS # (AUTO) 8.2 /CMM (1.8-8.9); NEUTROPHILS % (AUTO) 77.7 % (43.0-81.0); PLATELET COUNT (AUTO) 236 /CMM (150-450); RDW COEFFICIENT OF VARIATION 31.9 (11.5-15.0); RED BLOOD CELL COUNT(AUTO) 3.01 MIL/uL (4.0-5.2); WHITE BLOOD COUNT (AUTO) 10.6 K/uL (4.3-11.0)
[2018-01-23 04:58] LABS: CHLORIDE 105 mmol/L (98-107); CREATININE 1.2 mg/dL (0.6-1.3); GLUCOSE 149 mg/dL (74-106); MAGNESIUM 2.5 mg/dL (1.8-2.4); POTASSIUM 3.9 mmol/L (3.5-5.1); SODIUM SERUM 149 mmol/L (136-145); UREA NITROGEN, BLOOD 32 mg/dL (7-18)
[2018-01-23 05:12] LABS: CARBON DIOXIDE 40 mmol/L (21-32)
--- NOTE | 2018-01-23 06:29 | NUR ---
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 PT. REC'D A COMPLETE BEDBATH AT 5AM. W/ORAL/STEF & SKIN/WOUND CARE ADM. PT. CAN EASILY BECOME DISSHELVED BECAUSE SHE LIKES TO POSITION HERSELF SIDEWAYS. SBP'S ARE ELEVATED W/TACTILE STIMULUS. REPORT WILL BE ENDORSED TO LUPILLO ESCALANTE. CONT. POC.
[2018-01-23] MEDS: ACETYLCYSTEINE 10% SOLN 400 MG/4 ML VIAL NEB SCH ×2 (07:05→19:30)
--- NOTE | 2018-01-23 07:30 | NUR ---
ON AM ASSESSMENT PT NOTED TO BE BARELY RESPONSIVE TO TACTILE STIMULI, UNABLE TO FOLLOW COMMANDS, BUT ABLE TO REPOSITION HERSELF IN BED. PUPILS 4 BILAT, SLUGGISH. SAT 96% ON 6L SIMPLE MASK, RR 20, LABORED, RHONCHI AND WHEEZES ON AUSCULTATION BILATERALLY. V-PACED 70-80TH. PER DR KATE, THIS NEUROLOGICAL STATUS IS NOT NEW. PT REPOSITIONED, ASSISTED WITH ORAL HYGIENE.
[2018-01-23] MEDS: FUROSEMIDE 20 MG/2 ML VIAL IV SCH ×2 (08:42→16:46)
[2018-01-23] MEDS: POTASSIUM CHLORIDE 20 MEQ POWDER PACKET GT SCH (08:42)
[2018-01-23] MEDS: PANTOPRAZOLE 40 MG/PACK PACK NG SCH (08:42)
[2018-01-23] MEDS: Z GUARD REMEDY 2 OZ OINT TP SCH (08:43)
[2018-01-23] MEDS: ACETAMINOPHEN 650 MG/20.3 ML UDC NG PRN (08:56)
--- NOTE | 2018-01-23 09:00 | NUR ---
DR VARAGS AND DR KATE HERE AT BEDSIDE. DR VARGAS TRIED TO REACH THE FAMILY FOR DNR ORDERS.
--- NOTE | 2018-01-23 11:40 | NUR ---
PT'S BREATHING APPEARS MORE LABORED, PT UNAROUSABLE TO VERBAL AND TACTILE STIMULI. ABG OBTAINED STAT, DAUGHTER TORSTEN NOTIFIED ABOUT POSSIBLE INTUBATION FOR AIRWAY PROTECTION AND RESPIRATORY SUPPORT. SHE WILL GET BACK WITH DECISION IN 5 MIN.
[2018-01-23 11:45] LABS: ABG BASE EXCESS 14.8 mmol/L; ABG PCO2 79.7 mmHg (35.0-45.0); ABG PH 7.347 (7.350-7.450); ABG PO2 132.3 mmHg (75.0-100.0); AaDO2 97.9 mmHg; COHb 1.3 % (0.5-1.5); MetHb 0.5 % (0.0-1.5); O2Hb 96.2 % (94.0-97.0); SITE, ABG Right Radial; VENT MODE, BG simple mask
--- NOTE | 2018-01-23 11:54 | NUR ---
AD PER DAUGHTER TORSTEN, IT IS FAMILY DECISION TO CHANGE PT CODE STATUS TO DNR/DNI, WITNESSED BY CHARGE NURSE DR ALICIA GARCIA AND PELEG NOTIFIED. EMOTIONAL SUPPORT PROVIDED TO FAMILY.
[2018-01-23] MEDS: FIBERSOURCE HN 1,000 ML BOTTLE GT PRN (14:37)
[2018-01-23] MEDS ORDERED: MORPHINE SULFATE INJ 4 MG/ML DISP.SYRIN IV PRN (15:30)
--- NOTE | 2018-01-23 18:31 | NUR ---
ICU CLOSING NOTE PATIENT TRANSFERRED TO MED/SURG 2, ROOM 201. REPORT CALLED TO JESUS ALBERTO.
--- NOTE | 2018-01-23 18:35 | NUR ---
MS/technical designer Patient received from ICU. Made comfortable, daughter at bedside. Will endorse to shift mechanic.
--- NOTE | 2018-01-23 19:30 | NUR ---
rn note; RECEIVED PT IN BED WITH DTR AT THE BED SDIE. BREATHING EVENLY. NO SOB. NAD . SKIN WARM AND DRY, REMAINED CALM AND COMFORTABLE WITH NO S/S PAIN OR DISCOMFORT .NG IN PLACE . TF CHRIS WELL. W/ HOB ELEVATED. F/C IN PLACE DRAINING CLEAR YELLOW URINE. REPOSITIONED. BED LOW LOCKED . CALL LIGHT WITHIN REACH. WILL CONT TO MONITOR .
[2018-01-23] MEDS: OLANZAPINE 2.5 MG TABLET NG SCH (21:29)
[2018-01-24] MEDS: PIPERACILLIN /TAZOBACTAM 2.25 G in IV NS 0.9% 50 ML IV SCH ×3 (00:16→11:46)
[2018-01-24] MEDS: ALBUTEROL FS 2.5 MG/0.5 ML VIAL.NEB NEB SCH ×3 (01:36→13:55)
[2018-01-24] MEDS: IPRATROPIUM NEB FS 0.5 MG/2.5 ML AMPUL.NEB NEB SCH ×3 (01:36→13:55)
--- NOTE | 2018-01-24 03:23 | NUR ---
PT IN BED BREATHING SHALLOW, AND LABORED. REMAINED COMFORTABLE W/ NO S/S OF PAIN OR DISCOMFORT. VSS. O2 SAT 99-100% ON 10LPN VIA MASK. RR:14. WILL CONT TO MONITOR CLOSELY FOR ANY CHANGES .
--- NOTE | 2018-01-24 06:49 | NUR ---
RN NOTE; PT IN BED BREATHING SHALLOW AND SLOWLY. NO SS Addendum: 01/24/18 at 0654 by SAHNNAN MELGAR RN NO S/S OF PAIN OR DISCOMFORT NOTED. REMAINED COMFORTABLE. CLEAN AND DRY. BED LOW LOCKED. W// HOB ELEVATED. CALL LIGHT WITHIN REACH. WILL CONT TO MONITOR AND WILL ENDORSE TO AM SHIFT FOR TANA .
--- NOTE | 2018-01-24 07:00 | NUR ---
REPORT RECEIVED AT THE BEDSIDE. PATIENT IS RESTING IN BED. BREATHING UNEVEN, BUT NOT LABORED. ON O2 10L VIA MASK. CONTINUOUS PULSE OX ON AND PT AT 95%. NGTUBE FEEDING AT 55ML/H. PATIENT DOES NOT APPEAR TO BE IN PAIN, NO FACIAL GRIMACE NOTED. BED IN A LOW POSITION, WILL CONTINUE TO MONITOR.
[2018-01-24 07:07] LABS: CALCIUM, SERUM 8.1 mg/dL (8.5-10.1); CHLORIDE 109 mmol/L (98-107); CREATININE 1.4 mg/dL (0.6-1.3); GLUCOSE 185 mg/dL (74-106); SODIUM SERUM 152 mmol/L (136-145); UREA NITROGEN, BLOOD 40 mg/dL (7-18)
[2018-01-24 07:10] LABS: EOSINOPHILS % (AUTO) 0.1 % (0.0-6.0); HEMATOCRIT 30 % (33-45); HEMOGLOBIN 10.9 g/dL (11.5-14.8); LYMPHOCYTES # (AUTO) 1.3 /CMM (0.8-4.8); MEAN CORPUSCULAR HEMOGLOBIN 34 PG (26.0-33.0); MEAN CORPUSCULAR HGB CONC 36 g/dl (31.0-36.0); MEAN CORPUSCULAR VOLUME 94 fL (82-100); MONOCYTES # (AUTO) 0.8 /CMM (0.1-1.30); MONOCYTES % (AUTO) 8.5 % (2.0-12.0); NEUTROPHILS # (AUTO) 6.9 /CMM (1.8-8.9); NEUTROPHILS % (AUTO) 76.4 % (43.0-81.0); PLATELET COUNT (AUTO) 208 /CMM (150-450); RDW COEFFICIENT OF VARIATION 31.7 (11.5-15.0); RED BLOOD CELL COUNT(AUTO) 3.24 MIL/uL (4.0-5.2)
[2018-01-24 07:54] LABS: CARBON DIOXIDE 42 mmol/L (21-32)
[2018-01-24 08:00] VITALS: BP 119/49
[2018-01-24] MEDS: PANTOPRAZOLE 40 MG/PACK PACK NG SCH (08:47)
[2018-01-24] MEDS: POTASSIUM CHLORIDE 20 MEQ POWDER PACKET GT SCH (08:47)
[2018-01-24] MEDS: FUROSEMIDE 20 MG/2 ML VIAL IV SCH (08:47)
[2018-01-24] MEDS: Z GUARD REMEDY 2 OZ OINT TP SCH (08:48)
--- NOTE | 2018-01-24 10:01 | NUR ---
DR VARGAS ON FLOOR. STATES NO CHANGE IN PT TREATMENT OF NOW. SPOKE TO FAMILY AND STATES TO CONTINUE DNR/DNI STATUS.
[2018-01-24] MEDS: ACETYLCYSTEINE 10% SOLN 400 MG/4 ML VIAL NEB SCH (13:55)
--- NOTE | 2018-01-24 14:30 | NUR ---
PT BREATHING HAS DECREASED TO 12 PER MINUTE AND HAS BECOME VERY SHALLOW. MD AWARE. STATES TO GIVE MORPHINE IS PATIENT IS GRIMACING OR APPEARS TO BE STRUGGLING. PT SEEMS RELAXED AND IS NOT GRIMACING. WILL MONITOR.
--- NOTE | 2018-01-24 15:29 | NUR ---
DR VARGAS INFORMED OF BP 39/24. NO NEW ORDERS.
--- NOTE | 2018-01-24 16:45 | NUR ---
PT NOTED TO BE ABSENT OF BREATHING AND HEART BEAT AT 1619. VERIFIED BY TWO RNS. CALLED DR VARGAS TO INFORM. CALLED [facility], PT IS DOES NOT FIT REQUIREMENT FOR [facility]. . PT IS NOT A FOREIGN LANGUAGE STENOGRAPHER CASE. PT DAUGHTER IS ON THE FLOOR. WILL PREPARE PATIENT ONCE FAMILY HAS HAD SOME TIME WITH THE PATIENT. Addendum: 01/24/18 at 1652 by CLAIRE NESBITT RN NURSING TOWEL SORTER, [place], NOTIFIED OF PT .
--- NOTE | 2018-01-24 18:53 | NUR ---
PATIENT CLEANED, BAGGED, IDENTIFIERS PLACED, AND TAKEN TO THE [place]. DAUGHTER SIGNED PAPER AND WILL CONTACT THE NURSING HUMAN RESOURCE ASSISTANT IN THE MORNING WITH THE MORTUARY. NO BELONGINGS FOR THE PATIENT TO SURRENDER TO THE FAMILY.
--- NOTE | 2018-01-25 08:58 | NUR ---
Social Work consult was requested in regards to finding out family's choice in regards to aftercare(Hospice). SW went to see patient but pt. had .
== END 2018-01-24 18:53 | disposition expired | DRG 207 ==
LOC: ER 14:55 → ICU 21:06 → MEDSG2 01-23 18:21
PROVIDERS: ADMIT Internal Medicine; ATTEND Internal Medicine
PROC: 0W9B00Z Drainage of Left Pleural Cavity with Drainage Device, Open Approach (ICD-10-PCS; principal; 2018-01-07)
PROC: 0W9900Z Drainage of Right Pleural Cavity with Drainage Device, Open Approach (ICD-10-PCS; 2018-01-07)
PROC: 5A1955Z Respiratory Ventilation, Greater than 96 Consecutive Hours (ICD-10-PCS; 2018-01-07)
PROC: 0BH17EZ Insertion of Endotracheal Airway into Trachea, Via Natural or Artificial Opening (ICD-10-PCS; 2018-01-07)
PROC: 02HV33Z Insertion of Infusion Device into Superior Vena Cava, Percutaneous Approach (ICD-10-PCS; 2018-01-07)
PROC: B548ZZA Ultrasonography of Superior Vena Cava, Guidance (ICD-10-PCS; 2018-01-07)
PROC: 30233N1 Transfusion of Nonautologous Red Blood Cells into Peripheral Vein, Percutaneous Approach (ICD-10-PCS; 2018-01-09)
DX: J69.0 Pneumonitis due to inhalation of food and vomit (principal); I21.A1 Myocardial infarction type 2; R57.9 Shock, unspecified; E43 Unspecified severe protein-calorie malnutrition; G92 Toxic encephalopathy; L89.150 Pressure ulcer of sacral region, unstageable; N17.9 Acute kidney failure, unspecified; D68.9 Coagulation defect, unspecified; J96.01 Acute respiratory failure with hypoxia; E87.0 Hyperosmolality and hypernatremia; Z68.1 Body mass index [BMI] 19.9 or less, adult; I13.0 Hypertensive heart and chronic kidney disease with heart failure and stage 1 through stage 4 chronic kidney disease, or unspecified chronic kidney disease; J98.11 Atelectasis; J95.811 Postprocedural pneumothorax; Z51.5 Encounter for palliative care; E88.09 Other disorders of plasma-protein metabolism, not elsewhere classified; I48.2 Chronic atrial fibrillation; I27.20 Pulmonary hypertension, unspecified; E86.0 Dehydration; I34.0 Nonrheumatic mitral (valve) insufficiency; J44.9 Chronic obstructive pulmonary disease, unspecified; E03.9 Hypothyroidism, unspecified; N18.9 Chronic kidney disease, unspecified; I36.1 Nonrheumatic tricuspid (valve) insufficiency; E80.6 Other disorders of bilirubin metabolism; I25.10 Atherosclerotic heart disease of native coronary artery without angina pectoris; Z66 Do not resuscitate; Z95.0 Presence of cardiac pacemaker; S41.111A Laceration without foreign body of right upper arm, initial encounter; X58.XXXA Exposure to other specified factors, initial encounter; Y93.9 Activity, unspecified; Y92.129 Unspecified place in nursing home as the place of occurrence of the external cause; E87.6 Hypokalemia; E83.42 Hypomagnesemia; F03.90 Unspecified dementia, unspecified severity, without behavioral disturbance, psychotic disturbance, mood disturbance, and anxiety; I50.9 Heart failure, unspecified; Y84.8 Other medical procedures as the cause of abnormal reaction of the patient, or of later complication, without mention of misadventure at the time of the procedure; Y92.230 Patient room in hospital as the place of occurrence of the external cause; J84.9 Interstitial pulmonary disease, unspecified; K76.9 Liver disease, unspecified
CPT/HCPCS: 31720; 36415; 36600; 70450-TC; 71045-TC; 76705-TC; 80048-TC; 80053-TC; 80061-TC; 80076-TC; 81000-TC; 82140-TC; 82728-TC; 82803-TC; 82962-TC; 83540-TC; 83605-TC; 83735-TC; 83880; 84100-TC; 84439-TC; 84443-TC; 84484-TC; 85025-TC; 85610-TC; 85652-TC; 85730-TC; 86850-TC; 86921-TC; 87040-TC; 87081-TC; 93307-TC; 94002-TC; 94003-TC; 94760-TC; 94762-TC; 94799-TC; 99082-TC; A4216; A4606; A6253; A6402; A6403; C1751; C9113; J0330; J1815; J1940; J2060; J2270; J2405; J2543; J2920; J3370; J3475; J3480; J3490; J7030; J7040; J7050; J7060; J7070; P9016-BL; Z7610